=== PATIENT | female | born 2005 | race Caucasian/White ===

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

== ENCOUNTER 2024-05-12 00:47 | Day surgery (SDC) | payer OTHER, SELFPAY ==
--- NOTE | 2024-04-30 09:54 | SUR.PREOP ---
Report to the Outpatient Waiting Room, entrance under the green pavilion located off [facility], at time _0600_ on date _05/12/2024_. Planned Procedure Time: _0730_.? Time changes happen often and if your time is changed the preop area will call you the afternoon before. - You and your visitor will be asked to self-screen and do not enter if you have any COVID symptoms. Please call surgeon if you need to reschedule. - A mask is optional within the hospital at this time. Patients may have clear liquids (water, carbonated beverages, clear teas, apple juice) until 3 hours (0430) prior to surgery with a maximum of 20 ounces. - No food from midnight until time of surgery and no smoking. This includes no chewing gum, candy or mints. - Infants may have breast milk until 4 hours before surgery, formula 6 hours prior to surgery. - Children will be allowed to drink immediately following surgery.? If applicable, please bring a bottle or sippy cup to assist with drinking. Juice, water, soda, and popsicles are readily available.? For infants on formula, please bring formula the day of surgery.? Pacifiers are allowed. Take only the following medications with a SIP of water on the morning of surgery: _NA_ DO NOT STOP ANY OF YOUR OTHER PRESCRIPTION MEDICATIONS PRIOR TO SURGERY EXCEPT THE FOLLOWING Medications to discontinue per physician _NA_ Date to take last dose_NA_ Please no make-up, nail mongolian, hairspray, perfume, deodorant, or body powder the day of surgery.? No jewelry (including any body piercings) or valuables the day of surgery, leave them at home.? Please take a shower or bath the night before, or the morning of, surgery with an antibacterial soap.? Wear comfortable, loose fitting clothing.? Children are encouraged to wear pajamas. - Jewelry must be removed prior to entering the operating room.? Rings and piercings that are not removed may be cut off. - The hospital will not accept responsibility for valuables.? - Please leave all valuables, including medications, at home the day of surgery. If you are going home after surgery, a licensed driver/refuse collector must drive you home.? - NO public transportation without another adult if you receive anesthesia. - We recommend that an adult stay with you for 24 hours following discharge. - We also recommend that you do not drive, make important decision, drink alcoholic beverages, or take any drugs that were not prescribed by your health care provider for at least 24 hours after your discharge time. For Pediatric surgeries, we recommend two adults accompany the child home. Follow any additional instructions given to you from your surgeon. Telephone instructions given to Maria Elena and asked if any additional questions and then verbalized understanding. Patient advised to call surgeon office or pre surgery nurse liaison [phone] if any additional questions.
[2024-04-30 10:08] VITALS: BMI 20.3
[2024-05-12] VITALS (12 sets, daily range): BP systolic 91–120; BP diastolic 55–93; PULSE 55–93; RESP 14–20; TEMP 36.2–37.1; O2SAT 95–100
[2024-05-12 06:26] LABS: BEDSIDEPREGUCG Negative (Negative)
--- NOTE | 2024-05-12 06:29 | P.PNAN_ITS ---
Anes - Initial Pre Proc Eval Procedure: Operation Date: 05/12/24 07:30 Proposed Procedures p Bilateral Turbinated Repair, Bilateral Nasal Valve Repair - Reji Napier MD s Septoplasty - Reji Napier MD Date/Time: 05/12/24 06:29 Surgeon: Reji Napier MD Pre Op Diagnosis: Deviated Septum, Nasal Valve Collapse Patient Data Age: 18 Gender: F Height: 1.7 m Weight: 59 kg Last Vital Signs Temp 37.1 C 05/12/24 06:24 Pulse 93 05/12/24 06:24 Resp 16 05/12/24 06:24 BP 109/72 05/12/24 06:24 Pulse Ox 98 05/12/24 06:24 O2 Del Method Room Air 05/12/24 06:24 Allergies Allergy/AdvReac Type Severity Reaction Status Date / Time No Known Allergies Allergy Verified 05/12/24 06:23 Home Medications ?Medication ?Instructions ?Recorded ?Confirmed ?Type No Home Medications 04/30/24 04/30/24 History Laboratory Tests 05/12/24 06:24 POC Urine HCG, Qual Negative (Negative) Patient hx anesthesia problems: none Family hx anesthesia problems: none Results Review: All pre-operative results and documents have been reviewed as part of the pre- operative evaluation. [facility] Past Medical History Medical History (Updated 12/19/23 @ 00:01 by Poly Kidd) No active medical problems Surgical History Surgical History (Updated 05/12/24 @ 06:29 by Rafael Weber MD) H/O breast biopsy Social History Social History Smoking status: Never smoker Second hand tobacco smoke exposure: No Alcohol intake: never Substance use: never Substance use type: does not use Lack of Transportation: No Lack of Food: Never True Current Housing: I Have Housing Concerned About Future Housing: No Difficulty Paying Gas/Electric Bills: No Difficulty Paying for Meds: No Currently Unemployed: No Education: Associate Degree Difficulty w/ Childcare or Family Care: No Living arrangements: with family Additional living arrangements comments: parents Spiritual care concerns: No Anes - Eval Final PreProcedure Day of Procedure 05/12/24 06:29 Patient weight: normal Heart: regular rate and rhythm Lungs: clear to auscultation Airway: Mallampati scale class II Neurological: alert and oriented Last oral intake: >/= 8 hours ASA classification: I Emergent: no Anesthetic plan: proceed Anesthesia type and monitoring: general ETT and standard monitoring Results Review: All pre-operative results and documents have been reviewed as part of the pre- operative evaluation. Informed Consent: The patient's anesthetic plan and its attendant risks and benefits were discussed with the patient/family/POA. Questions were solicited and answers provided to the satisfaction of the patient/family/POA.
[2024-05-12] MEDS: LACTATED RINGERS 1,000 ML 30 ML IV CONT ×2 (06:30→08:40)
[2024-05-12] MEDS: OXYMETAZOLINE HCL 0.05% NAS 15 ML BTL (*BKC) 1 SPRAY NASAL (06:44)
[2024-05-12] MEDS: SCOPOLAMINE 1 MG PATCH 1 PATCH TRANSDERM (06:44)
[2024-05-12] MEDS: ACETAMINOPHEN 500 MG TABLET 1000 MG PO (06:44)
--- NOTE | 2024-05-12 07:01 | WPDHPUPDATE1 ---
History and Physical Update Update Date/Time: 05/12/24 07:01 History and Physical has been reviewed, including an updated exam of the patient. There are NO changes in the patient's condition. Risks, benefits, and alternatives have been discussed and questions answered. Patient agrees to proceed with procedure.
[2024-05-12] MEDS: ceFAZolin 2 GM/D5W 50 ML 2 GM/50 ML BAG IVPB (07:23)
[2024-05-12] MEDS: LIDO 1%/EPINEPHRINE 1:100,000 50 ML VIAL INFILTRATE (07:45)
--- NOTE | 2024-05-12 08:36 | P.OP_ITS ---
Procedure Note - Detailed Date of Procedure 05/12/24 Pre-op Diagnosis Deviated Septum, Nasal Valve Collapse Post-op Diagnosis Same Procedure Performed Septoplasty, turbinoplasty, bilateral nasal valve repair via alar maria e grafting Surgeon Reji Napier MD Anesthesia General Indications Nasal valve collapse Findings Right caudal deviated septum, bilateral nasal valve collapse, bilateral alar maria e grafts placed, Mohan splints placed Description of Procedure After obtaining informed consent and proper site verification the patient was brought to the operating room and placed on the operating table in the supine position. They were placed under general endotracheal anesthesia by the anesthesia provider. The patient was then draped in standard fashion for septoplasty and turbinoplasty. A timeout was performed and the correct patient and procedure were verified. The nasal cavity was injected with 1% lidocaine with 1-100,000 epinephrine and packed with afrin-soaked cottonoid pledgets. Attention was then directed to the nasal septum. A hemitransfixion incision was made in the left caudal septum and a mucoperichondrial flap was elevated in the usual fashion. The flap was elevated under endoscopic visualization and the remainder of the case was performed with endoscopic assistance. Using a D-knife, an incision was made through the cartilaginous septum with care to preserve the appropriate caudal and dorsal ?L-strut? of cartilage. The cartilage was then disarticulated from the bony-cartilaginous junction and the deviated cartilage was removed. Further deviated bone and cartilage was removed from the maxillary crest and posterior bony septum with care to avoid injury to the mucoperichondrial flap using a combination of dissection and Alpha-Juan forceps. Once this was completed, the hemitransfixion incision was closed using simple interrupted 4-0 chromic suture. A quilting stitch to reapproximate the mucoperichondrial flaps was then placed using 4-0 plain gut suture on a Vernon needle.? The cartilage was set aside and saved for later grafting. Next attention was directed to the turbinates. Using a 0? telescope and 2mm turbinate blade microdebrider, a stab incision was made in the anterior face of the turbinate and dissection was carried posterior to perform submucosal resection. Next the turbinate was outfractured using a blunt instrument. A similar procedure was then performed on the right-hand side without difficulty. The previously harvested septal cartilage was then carved into two appropriately sized alar maria e grafts.? Marginal incisions were made bilaterally through the vestibular nasal skin.? Using curved iris scissors, a pocket was dissected laterally along the lower lateral crura out to the piriform aperture for placement of the grafts.? The grafts were then placed into the dissected pockets bilaterally.? Once secure, the incisions were closed with 4-0 chromic suture. Mohan splints covered in mupirocin ointment were placed in the nasal cavity and secured to the membranous septum using a 3-0 Prolene suture. An brionna-gastric tube was used to decompress the stomach and care of the patient was handed over to anesthesia. The patient was awakened from general anesthesia extubated in the operating room, and transported to the recovery room in stable condition without complication. Estimated Blood Loss 15 Drains No Packing Yes (mohan splints) Pathology None sent Complications No immediate complications Condition Stable Disposition PACU
[2024-05-12] MEDS: MUPIROCIN 2% OINT 22 GM TUBE 1 APPLIC TOPICAL (08:40)
[2024-05-12] MEDS: fentaNYL CITRATE INJ (*CRX) 100 MCG/2 ML VIAL 25 MCG IV PUSH ×4 (09:14→09:23)
[2024-05-12] MEDS: ONDANSETRON INJ 4 MG/2 ML VIAL IV PUSH (10:15)
--- OUTSIDE RECORDS SUMMARY | 2024-05-17 10:32 | XMS_ITS | Encounter Summary ---
Author Organization [facility] Address [address] [facility] [place] [address] Care Team Providers Care Supervisor Metal Fabricating Name Role Phone Dawood Mcgarry MD Primary Care Provider [phone]- [phone] Reason for Visit * Reason Onset Date Comments Follow-up 11/23/2017 Encounter Details Date Type Department Care Team (Late st Contact Info) Description 11/23/2017 Telephone [facility] [address] [address] Jennifer Wallis Follow-up Social History Tobacco Use Types Packs/Day Years Used Date Smoking Tobacco: Never Smokeless Tobacco: Never Comments:No passive smoke ex posure Sex and Gender Information Value Date Recorded Sex Assigned at Not on file Gender Identity Not on file Sexual Orientation Not on file documented as of this encounter Plan of Treatment Not on file documented as of this encounter Visit Diagnoses Not on filedocumented in this encounter Care Teams Supervisor Metal Fabricating Relationship Specialty Start Date End Date Dawood Mcagrry MD [address] [place] [address] PCP - General Pediatrics 09/04/16 documented as of this encounter
--- OUTSIDE RECORDS SUMMARY | 2024-05-17 10:32 | XMS_ITS | Encounter Summary ---
Author Organization [facility] Address [address] [facility] [place] [address] Care Team Providers Care Associate Chief Nurse Name Role Phone Dawood Mcgarry MD Primary Care Provider [phone]- [phone] Reason for Visit * Reason Onset Date Comments Follow-up 09/06/2016 Encounter Details Date Type Department Care Team (Late st Contact Info) Description 09/06/2016 Telephone [facility] [place] [id number] [place] [address] Jennifer Wallis Follow-up Social History Tobacco Use Types Packs/Day Years Used Date Smoking Tobacco: Never Assessed Sex and Gender Information Value Date Recorded Sex Assigned at Not on file Gender Identity Not on file Sexual Orientation Not on file documented as of this encounter Plan of Treatment Not on file documented as of this encounter Visit Diagnoses Not on filedocumented in this encounter Care Teams Associate Chief Nurse Relationship Specialty Start Date End Date Dawood Mcgarry MD [facility] [place] [address] PCP - General Pediatrics 09/04/16 documented as of this encounter
--- OUTSIDE RECORDS SUMMARY | 2024-05-17 10:32 | XMS_ITS | Encounter Summary ---
Author Organization [facility] Address [address] [facility] [place] [address] Care Team Providers Care Scouring Machine Operator Name Role Phone Dawood Mcgarry MD Primary Care Provider [phone]- [phone] Reason for Visit * Reason Comments Sore Throat Encounter Details Date Type Department Care Team (Late st Contact Info) Description 08/13/2018 3:40 PM CDT Office Visit [facility] [address] [place] [address] Provider, Hailee [address] Pharyngitis, unspecified etiology (Primary Dx) Social History Tobacco Use Types Packs/Day Years Used Date Smoking Tobacco: Never Smokeless Tobacco: Never Comments:No passive smoke ex posure Sex and Gender Information Value Date Recorded Sex Assigned at Not on file Gender Identity Not on file Sexual Orientation Not on file documented as of this encounter Last Filed Vital Signs Vital Sign Reading Time Taken Comments Blood Pressure 108/66 08/13/2018 3:43 PM CDT Pulse 77 08/13/2018 3:43 PM CDT Temperature 36.7 ??C (98 ??F) 08/13/2018 3:43 PM CDT Respiratory Rate 16 08/13/2018 3:43 PM CDT Oxygen Saturation 99% 08/13/2018 3:43 PM CDT Inhaled Oxygen Concentration - - Weight 55.8 kg (123 lb) 08/13/2018 3:43 PM CDT Height 167 cm (5' 5.75 ) 08/13/2018 3:43 PM CDT Body Mass Index 20 08/13/2018 3:43 PM CDT Body Mass Index Percentile 58.44% 08/13/2018 3:4 3 PM CDT Growth Chart: [facility] (Girls, 2- 20 Years) documented in this encounter Patient Instructions * Patient Instructions* Kathrine Rachel APRN-JUNIOR SALES ASSISTANT - 08/13/2018 3:56 PM CDT Recommend Zyrtec for sinus drainage. Drink plenty of fluids and rest when able. May take Tylenol or Ibuprofen as directed per package instructions Warm salt water gargles Humidifier SEEK EMERGENCY CARE IF SEVERE SYMPTOMS PERSIST, SUCH , BUT NOT LIMITED TO: HIGH FEVER, NECK PAIN,SWELLING OF THE NECK, NECK TENDERNESS, DEVELOPMENT OF RASH, DIFFICULTY SWALLOWING, MENTAL STATUS CHANGES, SEVERE HEADACHE, CHANGES IN THE COLOR OF YOUR URINE, DECREASED URINATION, OR INABILITY TO SWALLOW SALIVA (MAY MANIFEST DROOLING IN CHILDREN) Pharyngitis in Children X RAY EQUIPMENT TESTER: Pharyngitis , or sore throat, is inflammation of the tissues and structures in your child's pharynx(throat). Pharyngitis may be caused by a bacterial or viral infection. Signs and symptoms that may occur with pharyngitis include the following: ?? Pain during swallowing, or hoarseness ?? Cough, runny or stuffy nose, itchy or watery eyes ?? A rash on his or her body ?? Fever and headache ?? Whitish-yellow patches on the back of the throat ?? Tender, swollen lumps on the sides of the neck ?? Nausea, vomiting, diarrhea, or stomach pain Seek care immediately if: ?? Your child suddenly has trouble breathing or turns blue. ?? Your child has swelling or pain in his or her jaw. ?? Your child has voice changes, or it is hard to understand his or her speech. ?? Your child has a stiff neck. ?? Your child is urinating less than usual or has fewer diapers than usual. ?? Your child has increased weakness or fatigue. ?? Your child has pain on one side of the throat that is much worse than the other side. Contact your child's healthcare provider if: ?? Your child's symptoms return or his symptoms do not get better or get worse. ?? Your child has a rash. He or she may also have reddish cheeks and a red, swollen tongue. ?? Your child has new ear pain, headaches, or pain around his or her eyes. ?? Your child pauses in breathing when he or she sleeps. ?? You have questions or concerns about your child's condition or care. Viral pharyngitis will go away on its own without treatment. Your child's sore throat should start to feel better in 3 to 5 days for both viral and bacterial infections. Your child may need any of the following: ?? Acetaminophen decreases pain. It is available without a doctor's order. Ask how much to give your child and how often to give it. Follow directions. Acetaminophen can cause liver damage if not taken correctly. ?? NSAIDs , such as ibuprofen, help decrease swelling, pain, and fever. This medicine is available with or without a doctor's order. NSAIDs can cause stomach bleeding or kidney problems in certain people. If your child takes blood thinner medicine, always ask if NSAIDs are safe for him. Always readthe medicine label and follow directions. Do not give these medicines to children under 6 months of age without direction from your child's healthcare provider. ?? Antibiotics treat a bacterial infection. ?? Do not give aspirin to children under 18 years of age. Your child could develop Humberto syndrome ifhe takes aspirin. Humberto syndrome can cause life- threatening brain and liver damage. Check your child's medicine labels for aspirin, salicylates, or oil of wintergreen. Manage your child's symptoms: ?? Have your child rest as much as possible. ?? Give your child plenty of liquids so he or she does not get dehydrated. Give your child liquids that are easy to swallow and will soothe his or her throat. ?? Soothe your child's throat. If your child can gargle, give him or her ?? of a teaspoon of salt mixed with 1 cup of warm water to gargle. If your child is 12 years or older, give him or her throat lozenges to help decrease throat pain. ?? Use a cool mist humidifier to increase air moisture in your home. This may make it easier for your child to breathe and help decrease his or her cough. Prevent the spread of germs: Wash your hands and your child's hands often. Keep your child away from other people while he or she is still contagious. Ask your child's healthcare provider how long your child is contagious. Do not let your child share food or drinks. Do not let your child share toysor pacifiers. Wash these items with soap and hot water. When to return to school or daycare: Your child may return to daycare or school when his or her symptoms go away. Follow up with your child's healthcare provider as directed: Write down your questions so you remember to ask them during your child's visits. ?? Copyright [employer] 2017 Information is for End User's use only and may not be sold, redistributed or otherwise used for commercial purposes. All illustrations and images included in CareNotes?? are the copyrighted property of [employer] or [employer] The above information is an educational consultant only. It is not intended as medical advice for individual conditions or treatments. Talk to your doctor, nurse or pharmacist before following any medical regimen to see if it is safe and effective for you. documented in this encounter Progress Notes * Kathrine Rachel APRN-CNP - 08/13/2018 3:49 PM CDT Images from the original note were not included. History Maria Elena Marquez is a 13 year old female who presents to the clinic with Chief Complaint Patient presents with ??? Sore Throat . Primary Care Physician is Dawood Mcgarry MD. She reports the following symptoms: sore throat, swollen glands, productive cough with wheezing andoccasional shortness of breath, pain while swallowing and enlarged tonsils. Onset was 2 days ago. The Clinical course has been gradually worsening. Patient is drinking plenty of fluids.. The pain is described as aching, and is 5/10 in intensity. OTC- none.. Sick Contacts: No known sick contacts. Past Medical History: Diagnosis Date ??? Anxiety ??? Asthma No family history on file. Current Outpatient Prescriptions Medication Sig Dispense Refill ??? ALBUTEROL IN ??? escitalopram (LEXAPRO) 10 MG tablet Take 10 mg by mouth once daily No current facility-administered medications for this visit. No Known Allergies Social History Social History ??? Marital status: Single Social History Main Topics ??? Smoking status: Never Smoker ??? Smokeless tobacco: Never Used Comment: No passive smoke exposure Review of Systems Constitutional: Negative for fatigue, fevers, chills, malaise. Eyes: Negative Ears, nose, mouth, and throat: Positive for nasal congestion, post nasal drainage, sore throat, pain with swallowing, tonsillitis Respiratory: Positive for shortness of breath, acute cough, sputum production, asthma, wheezing Cardiovascular: Negative Hematologic/lymphatic: Negative Objective: BP 108/66 Pulse 77 Temp 98 ??F (36.7 ??C) Resp 16 Ht 1.67 m (5' 5.75 ) Wt 55.8 kg (123 lb) SpO2 99%BMI 20 kg/m2 General appearance: alert, cooperative, no distress, oriented to person, place, and time Head: normocephalic, without trauma Eyes: sclera and conjunctiva clear Ears: canals clear, tympanic membranes normal, hearing intact to voice Nose: nares open; no septal deviation is noted, nasal mucosa not inflamed Throat: no mucous membrane abnormalities, mild oropharyngeal erythema, tonsillar hypertrophy 1+ Neck: supple Nodes: mild, benign-appearing anterior cervical adenopathy Lungs: breath sounds normal and symmetric; no rales or wheezes Heart: regular rhythm, normal S1 and S2, without murmurs, gallops or rubs Assessment: Encounter Diagnosis Name Primary? Pharyngitis, unspecified etiology Yes Plan: Father declined throat culture. Recommend Zyrtec for sinus drainage. Use as directed. Educational materials given. Drink plenty of fluids May take Tylenol or Ibuprofen as directed per package instructions Warm salt water gargles Humidifier Reviewed education materials and instructions with patient and answered all questions. Maria Elena Marquez's father verbalized understanding and agrees with plan. Follow up with Dawood Mcgarry MD if symptoms worsen or do not completely resolve. SEEK EMERGENCY CARE IF SEVERE SYMPTOMS PERSIST, SUCH , BUT NOT LIMITED TO: HIGH FEVER, NECK PAIN,SWELLING OF THE NECK, NECK TENDERNESS, DEVELOPMENT OF RASH, DIFFICULTY SWALLOWING, MENTAL STATUS CHANGES, SEVERE HEADACHE, CHANGES IN THE COLOR OF YOUR URINE, DECREASED URINATION, OR INABILITY TO SWALLOW SALIVA (MAY MANIFEST DROOLING IN CHILDREN) Orders Placed This Encounter ??? STREP A SCREEN - POINT OF CARE (AMB) STL Recent Results (from the past 24 hour(s)) STREP A SCREEN - POINT OF CARE (AMB) STL Collection Time: 08/13/18 12:00 AM Result Value Ref Range Strep A Rapid POCT Negative Negative Strep A Internal Control Present Lot # [id number] Expiration Date 02/25/2020 RAÚL Medrano 08/13/2018 4:02 PM documented in this encounter Plan of Treatment Not on file documented as of this encounter Procedures Procedure Name Priority Date/Time Associated Diagnosis Comments STREP A SCREEN - POINT OF CARE (AMB) STL Routine 08/13/2018 Pharyngitis, unspecified etiology documented in this encounter Results * STREP A SCREEN - POINT OF CARE (AMB) STL (08/13/2018) Strep A Rapid POCT Negative Negative Strep A Internal Control Present Lot # [id number] Expiration Date 02/25/2020 Throat ENTIRE THROAT (SURFACE REGION OF NECK) / Unknown 08/13/2018 [facility] - POINT OF CARE ORDERABLES documented in this encounter Visit Diagnoses Diagnosis Pharyngitis, unspecified etiology- Primary documented in this encounter Care Teams Scouring Machine Operator Relationship Specialty Start Date End Date Dawood Mcgarry MD [address] [place] [address] PCP - General Pediatrics 09/04/16 documented as of this encounter
--- OUTSIDE RECORDS SUMMARY | 2024-05-17 10:32 | XMS_ITS | Patient Health Summary ---
Author Organization [facility] Address [address] [place] [address] Care Team Providers Care Mixer Operator Name Role Phone Dawood Mcgarry MD Primary Care Provider [phone]- [phone] Note from [facility],non-owned Affiliates and Associated Physician Practices is amultiple site organization consisting of ambulatory clinics and hospital sitesin [place], [place], [place] and [place]. This disclosure is being madepursuant to the Care Everywhere program and may not contain all information available regarding this patient. Last updated 18.[facility] Allergies No known active allergies Medications * Be aware that medications may not be up to date on this document. Alwaysverify current medications with the patient. * ALBUTEROL IN * escitalopram (LEXAPRO) 10 MG tablet Take 10 mg by mouth once daily * dtdhsomx-gegtfksqn-iz (CORTISPORIN) 3.5-37270-0 otic solution(Started 12/13/2018) Instill 4 drops into both ears 3 times daily Active Problems No known active problems Social History Tobacco Use Types Packs/Day Years Used Date Smoking Tobacco: Never Smokeless Tobacco: Never Comments:No passive smoke ex posure Sex and Gender Information Value Date Recorded Sex Assigned at Not on file Gender Identity Not on file Sexual Orientation Not on file Last Filed Vital Signs Vital Sign Reading Time Taken Comments Blood Pressure 98/60 12/13/2018 6:29 PM CDT Pulse 68 12/13/2018 6:29 PM CDT Temperature 36.9 ??C (98.4 ??F) 12/13/2018 6:29 PM CD T Respiratory Rate 16 12/13/2018 6:29 PM CDT Oxygen Saturation 98% 11/25/2018 4:49 PM CDT Inhaled Oxygen Concentration - - Weight 56.7 kg (125 lb) 12/13/2018 6:29 PM CDT Height 167.6 cm (5' 6 ) 12/13/2018 6:29 PM CDT Body Mass Index 20.18 12/13/2018 6:29 PM CDT Body Mass Index Percentile 58.14% 12/13/2018 6:2 9 PM CDT Growth Chart: [facility] (Girls, 2- 20 Years) Procedures * STREP A SCREEN - POINT OF CARE (AMB) STL(Performed 08/13/2018) Performed for Pharyngitis, unspecified etiology * INFLUENZA A+B - POINT OF CARE (AMB)(Performed 06/05/2018) Performed for Acute URI * INFLUENZA A+B - POINT OF CARE (AMB)(Performed 07/16/2017) Performed for Nasopharyngitis acute * CULTURE THROAT(Performed 09/04/2016) Performed for Viral pharyngitis * STREP A SCREEN - POINT OF CARE (AMB) STL(Performed 09/04/2016) Performed for Viral pharyngitis Results * STREP A SCREEN - POINT OF CARE (AMB) STL (08/13/2018) Only the most recent of2 resultswithin the time period is included. Strep A Rapid POCT Negative Negative Strep A Internal Control Present Lot # [id number] Expiration Date 02/25/2020 Throat ENTIRE THROAT (SURFACE REGION OF NECK) / Unknown 08/13/2018 Kathrine Rachel [facility]OR [facility] - POINT OF CARE ORDERABLES * INFLUENZA A+B - POINT OF CARE (AMB) (06/05/2018) Only the most recent of2 resultswithin the time period is included. Influenza A Antigen Rapid Negative Negative Influenza B Antigen Rapid Negative Negative Influenza Internal Control yes NEGATIVE - POSITIVE Influenza Lot Number [id number] Influenza Expiration Date 09/25/18 Other NASOPHARYNGEAL SWAB / Unknown 06/05/2018 Annabelle Abraham ACTOR UNDERSTUDY[facility] - POINT OF CA RE ORDERABLES * (ABNORMAL) CULTURE THROAT (09/04/2016 10:39 AM CDT) Culture (A) [facility] Comment: ??CULTURE, THROAT ?MICRO NUMBER: ?[id number] ??TEST STATUS: ? FINAL ??SPECIMEN SOURCE: ?? THROAT ??SPECIMEN QUALITY: ??ADEQUATE ??RESULT: ?Heavy growth of Group A Streptococcus isolated ? Beta-hemolytic Streptococci are predictably ? susceptible to penicillin and other beta-lactams. ? Susceptibility testing not routinely performed. ??COMMENT: ? Normal oropharyngeal prakash also present. Test Performed at: [facility] ??[id number] JORJE LOPEZ MD Microbiology ENTIRE THROAT (SURFACE REGION OF NECK) / Unknown 09/04/2016 10:39 AM CDT 09/05/2016 2:38 AM CDT Swetha Proctor ACTOR [facility] - MICROBIOLO GY ORDERABLES [address] [address] Care Teams Mixer Operator Relationship Specialty Start Date End Date Dawood Mcgarry MD [facility] [place] [address] PCP - General Pediatrics 09/04/16
--- OUTSIDE RECORDS SUMMARY | 2024-05-17 10:32 | XMS_ITS | Encounter Summary ---
Author Organization [facility] Address [address] [facility] [place] [address] Care Team Providers Care International Accounting Manager Name Role Phone Dawood Mcgarry MD Primary Care Provider [phone]- [phone] Reason for Visit * Reason Onset Date Comments Results 09/07/2016 Encounter Details Date Type Department Care Team (Late st Contact Info) Description 09/07/2016 Telephone [facility] [email or web address] [facility] [address] [place] [address] Kathrine Rachel, [facility] [address] [address] Results Social History Tobacco Use Types Packs/Day Years Used Date Smoking Tobacco: Never Assessed Sex and Gender Information Value Date Recorded Sex Assigned at Not on file Gender Identity Not on file Sexual Orientation Not on file documented as of this encounter Plan of Treatment Not on file documented as of this encounter Visit Diagnoses Not on filedocumented in this encounter Care Teams International Accounting Manager Relationship Specialty Start Date End Date Dawood Mcgarry MD [address] [place] [phone] PCP - General Pediatrics 09/04/16 documented as of this encounter
--- OUTSIDE RECORDS SUMMARY | 2024-05-17 10:32 | XMS_ITS | Encounter Summary ---
Author Organization [facility] Address [address] [place] [address] Care Team Providers Care Autographer Name Role Phone Dawood Mcgarry MD Primary Care Provider [phone] Reason for Visit * Reason Comments Sports Physical Encounter Details Date Type Department Care Team (Latest Contact Info) Description 12/31/2017 4:00 PM CDT Office Visit [facility] [place] [id number] [place] [address] Provider, [facility] Encounter for sports participation examination (Primary Dx) Social History Tobacco Use Types Packs/Day Years Used Date Smoking Tobacco: Never Smokeless Tobacco: Never Comments:No passive smoke ex posure Sex and Gender Information Value Date Recorded Sex Assigned at Not on file Gender Identity Not on file Sexual Orientation Not on file documented as of this encounter Last Filed Vital Signs Vital Sign Reading Time Taken Comments Blood Pressure 122/64 12/31/2017 4:15 PM CDT Pulse 84 12/31/2017 4:15 PM CDT Temperature 36.9 ??C (98.4 ??F) 12/31/2017 4:15 PM CD T Respiratory Rate 16 12/31/2017 4:15 PM CDT Oxygen Saturation 99% 12/31/2017 4:15 PM CDT Inhaled Oxygen Concentration - - Weight 55.8 kg (123 lb) 12/31/2017 4:15 PM CDT Height 167 cm (5' 5.75 ) 12/31/2017 4:15 PM CDT Body Mass Index 20.01 12/31/2017 4:15 PM CDT Body Mass Index Percentile 63.15% 12/31/2017 4:1 5 PM CDT Growth Chart: [facility] (Girls, 2- 20 Years) documented in this encounter Progress Notes * Kathrine Rachel, EXPLOSIVE ORDNANCE DISPOSAL MANAGER-ACCOUNTING ASSOCIATE - 12/31/2017 4:19 PM CDT Images from the original note were not included. Maria Elena Marquez 2005 12/31/2017 PCP: Dawood Mcgarry MD [facility] Preparticipation Sports/Camp Examination Maria Elena Marquez is a 12 y.o. female who [facility] a sports/camp physical. Patient/parent deny any current health related concerns. She plans to participate in swimming, soccer, basketball, volleyball. Has participated in all of the above sports previously without any jose related concerns. Patient denies any history of concussion, head injury, or seizures. Patient denies any history of chest pain, chest pain with exertion, feeling lightheaded or experiencing dizziness with exercise. Denies difficulty breathing during or after exercise. Denies history of hernia. Denies any family history of sudden cardiac or unexplained for those under age 50. Denies any family history of cardiomyopathy. Denies any family history of Marfan Syndrome. Medications reviewed. No outpatient prescriptions have been marked as taking for the 12/31/17 encounter (Office Visit) withHailee De Jesus Exp [facility]. No Known Allergies Vaccines: Reported as UTD Last Tetanus: up to date. Past Medical History: Diagnosis Date ??? Anxiety ??? Asthma Past Surgical History: Procedure Laterality Date ??? NEGATIVE SURGICAL HISTORY family history is not on file. Social History Social History ??? Marital status: Single Spouse name: N/A ??? Number of children: N/A ??? Years of education: N/A Occupational History ??? Not on file. Social History Main Topics ??? Smoking status: Never Smoker ??? Smokeless tobacco: Never Used Comment: No passive smoke exposure ??? Alcohol use Not on file ??? Drug use: Not on file ??? Sexual activity: Not on file Other Topics Concern ??? Not on file Social History Narrative History Smoking Status ??? Never Smoker Smokeless Tobacco ??? Never Used Comment: No passive smoke exposure Denies use of steroids, other performance, or recreational drugs. Review of Systems Constitutional: Negative for fatigue, fevers, chills. Eyes: Negative for double vision, eye pain bilaterally, redness bilaterally, irritation bilaterally, color blindness, or contacts. Wears glasses. Ears, nose, mouth, and throat: Negative for hearing loss bilaterally, tinnitus bilaterally, earaches bilaterally, persistent sore throat, dental problems Respiratory: Negative for shortness of breath, chronic cough, wheezing. Patient has asthma, uses inhaler rarely. Cardiovascular: Negative for palpitations, tachycardia, irregular heart beat, near-syncope, syncope, chest pain, exertional chest pain or pressure, lower extremity edema Gastrointestinal: Negative for nausea, vomiting, gallbladder trouble, change in bowel habits, constipation, diarrhea Genitourinary:Negative for frequency, urinary tract infection, kidney stone, dysmenorrhea Skin: Negative for rash, itching, bruising, lumps or bumps Breast: Negative for lump bilaterally, mass bilaterally, pain bilaterally Hematologic/lymphatic: Negative for anemia, bleeding disorder, swollen nodes, abnormal bruising, blood clots Musculoskeletal:Negative for joint pain, back pain, neck pain, muscle weakness, muscle pain Neurological: Negative for headaches, migraine headaches, syncope, seizures, speech impairment, balance problem, memory problem Behavioral/Psych: Negative for depressed mood, fatigue, hallucinations, delusions, memory loss, suicidal ideation. Positive for patient has anxiety, no medication for it. She went to counseling. Endocrine: Negative for thyroid nodule, cold intolernance, heat intolerance Objective Vitals: BP 122/64 Pulse 84 Temp 98.4 ??F (36.9 ??C) Resp 16 Ht 1.67 m (5' 5.75 ) Wt 55.8 kg (123 lb) SpO2 99% BMI 20.01 kg/m2 Vision Screen: Visual Acuity Screening Right eye Left eye Both eyes Without correction: 20/20 20/40 20/20 With correction: General appearance: alert, cooperative, no distress, oriented to person, place, and time, well appearing Head: normocephalic, without trauma Eyes: sclera and conjunctiva clear, EOMI and PERRLA, lids normal. Ears: bilateral ear canals clear, tympanic membranes normal, hearing intact to voice Nose: nares open; no septal deviation is noted, nasal mucosa not inflamed Mouth: lips, mucosa, and tongue normal; teeth and gums normal Throat: Uvula midline, no erythema, exudates, masses, or lesions. Tonsils unremarkable Neck: supple, range of motion is intact, no masses, thyroid not enlarged, no adenopathy Nodes: no cervical, axilla, or supraclavicular adenopathy Back: no deformity or tenderness, range of motion is intact. No CVA tenderness. Chest: no tenderness Breasts: exam not performed Lungs: breath sounds normal and symmetric; no rales or wheezes. Good aeration Heart: regular rate and rhythm, normal S1 and S2, without murmurs, gallops or rubs. No murmurs auscultated while standing, supine, or valsalva. No Marfan stigmata Abdomen: soft without mass, non-tender, with normal bowel sounds. No organomegaly. : exam not performed (negative screening) Extremities: no clubbing, cyanosis or edema Circulation: pedal pulses are intact and symmetrical, aorta is not enlarged; Radial pulses intact and symmetric. Capillary refill is brisk. Joints: ranges of motion normal without inflammation, effusion or deformity Skin: warm, dry, and intact. No rashes or other abnormalities are noted Musculoskeletal: bilateral hand asphalt blender 5/5 and equal; bilateral arm and leg strength 5/5 with normaltone; no spinal deformities or tenderness; normal duck walk, normal left and right leg hop. Normal gait and station. Neurologic: mental status normal; alert and oriented X 3; cranial nerves II - XII are grossly intact. Deep tendon reflexes are symmetrical and intact. Psychiatric: mood, memory, affect, and judgment normal. Assessment: Satisfactory school/camp physical exam. Plan/Recommendation: Unrestricted participation granted Permission granted to participate in athletics without restrictions - form signed and returned to patient. See scanned document. Reviewed health maintenance, seat belt use, contraception, STD???s, and substance abuse. Keep yearly appointments for dental, eye, and physical exams Follow up with Dawood Mcgarry MD as needed. Kathrine Rachel APRN, SUPERVISING PRODUCER-BC 12/31/2017 4:42 PM documented in this encounter Plan of Treatment Not on file documented as of this encounter Visit Diagnoses Diagnosis Encounter for sports participation examination- Primary Other general medical examination for administrative purposes documented in this encounter Care Teams Autographer Relationship Specialty Start Date End Date Dawood Mcgarry MD [address] [place] [id number] PCP - General Pediatrics 09/04/16 documented as of this encounter
--- OUTSIDE RECORDS SUMMARY | 2024-05-17 10:32 | XMS_ITS | Encounter Summary ---
Author Organization [facility] Address [address] [place] [address] Care Team Providers Care Director Ehs Name Role Phone Dawood Mcgrary MD Primary Care Provider [phone]- [phone] Reason for Visit * Reason Comments Congestion Headache Fever Encounter Details Date Type Department Care Team (Late st Contact Info) Description 06/05/2018 9:00 AM FACILITY MANAGER Office Visit [facility] [place] [id number] [place] [address] Provider, Hailee Exp Nameoki Acute URI (Primary Dx) Social History Tobacco Use Types Packs/Day Years Used Date Smoking Tobacco: Never Smokeless Tobacco: Never Comments:No passive smoke ex posure Sex and Gender Information Value Date Recorded Sex Assigned at Not on file Gender Identity Not on file Sexual Orientation Not on file documented as of this encounter Last Filed Vital Signs Vital Sign Reading Time Taken Comments Blood Pressure 116/68 06/05/2018 9:09 AM FACILITY MANAGER Pulse 82 06/05/2018 9:09 AM FACILITY MANAGER Temperature 36.5 ??C (97.7 ??F) 06/05/2018 9:09 AM CS T Respiratory Rate 16 06/05/2018 9:09 AM FACILITY MANAGER Oxygen Saturation 98% 06/05/2018 9:09 AM FACILITY MANAGER Inhaled Oxygen Concentration - - Weight 55.8 kg (123 lb) 06/05/2018 9:09 AM FACILITY MANAGER Height 167 cm (5' 5.75 ) 06/05/2018 9:09 AM FACILITY MANAGER Body Mass Index 20 06/05/2018 9:09 AM FACILITY MANAGER Body Mass Index Percentile 59.85% 06/05/2018 9:0 9 AM FACILITY MANAGER Growth Chart: CDC (Girls, 2- 20 Years) documented in this encounter Patient Instructions * Patient Instructions* Annabelle Abraham Gustavo, EMERGENCY MEDCL EMT-SECOND FACING BASTER - 06/05/2018 9:37 AM FACILITY MANAGER Images from the original note were not included. You have been diagnosed with a VIRAL INFECTION. -Viral infections do not improve with antibiotics. -Viral symptoms can linger from 7-14 days -The color of drainage or phlegm does not always reflect the need for an antibiotic, even during a viral illness it is normal for drainage to change from yellow to green at times. -Please refer to the CDC Get Smart (cdc.gov/getsmart) campaign for more details. There are many OTC medications and supportive care measures you can try to treat your symptoms until your symptoms resolve. Use all OTC medications as directed per package instructions -Tylenol or Ibuprofen for fever and pain. -Antihistamines (Claritin, Zyrtec, or Marcy) as needed for drainage. -Delsym or Mucinex as needed for coughing. -Cough drops and throat lozenges -Increase decaffeinated fluids -Sleep with head of bed raised (to promote drainage) -Avoid spreading the virus by remaining at home and away from others until you are fever-free (temperature below 100.3) for 24 hours, without the aid of fever reducers. -Good handwashing and coveringyour mouth when coughing are also important. If you are not improving or worsening in the next 5-7 days you must RETURN to the clinic, go to your PCP, or Urgent Care/ER to be SEEN and reevaluated. No further prescriptions or refills will be given by phone without another evaluation. IF YOU DEVELOP A HIGH FEVER (103+), NECK STIFFNESS, DIFFICULTY BREATHING, CHEST PAIN, RASH, OR ANY OTHER LIFE THREATENING SYMPTOMS, CALL 911 OR GO TO THE ER IMMEDIATELY Upper Respiratory Infection in Children BOAT DECKHAND: An upper respiratory infection is also called a common cold. It can affect your child's nose, throat, ears, and sinuses. Most children get about 5 to 8 colds each year. Common signs and symptoms include the following: Your child's cold symptoms will be worst for the first 3 to 5 days. Your child may have any of the following: ?? Runny or stuffy nose ?? Sneezing and coughing ?? Sore throat or hoarseness ?? Red, watery, and sore eyes ?? Tiredness or fussiness ?? Chills and a fever that usually lasts 1 to 3 days ?? Headache, body aches, or sore muscles Seek care immediately if: ?? Your child's temperature reaches 105??F (40.6??C). ?? Your child has trouble breathing or is breathing faster than usual. ?? Your child's lips or nails turn blue. ?? Your child's nostrils flare when he or she takes a breath. ?? The skin above or below your child's ribs is sucked in with each breath. ?? Your child's heart is beating much faster than usual. ?? You see pinpoint or larger reddish-purple dots on your child's skin. ?? Your child stops urinating or urinates less than usual. ?? Your baby's soft spot on his or her head is bulging outward or sunken inward. ?? Your child has a severe headache or stiff neck. ?? Your child has chest or stomach pain. ?? Your baby is too weak to eat. Contact your child's healthcare provider if: ?? Your child has a rectal, ear, or forehead temperature higher than 100.4??F (38??C). ?? Your child has an oral or pacifier temperature higher than 100??F (37.8??C). ?? Your child has an armpit temperature higher than 99??F (37.2??C). ?? Your child is younger than 2 years and has a fever for more than 24 hours. ?? Your child is 2 years or older and has a fever for more than 72 hours. ?? Your child has had thick nasal drainage for more than 2 days. ?? Your child has ear pain. ?? Your child has white spots on his or her tonsils. ?? Your child coughs up a lot of thick, yellow, or green mucus. ?? Your child is unable to eat, has nausea, or is vomiting. ?? Your child has increased tiredness and weakness. ?? Your child's symptoms do not improve or get worse within 3 days. ?? You have questions or concerns about your child's condition or care. Treatment for your child's cold: There is no cure for the common cold. Colds are caused by viruses and do not get better with antibiotics. Most colds in children go away without treatment in 1 to 2 weeks. Do not give estk-ffv-gfblnot (OTC) cough or cold medicines to children younger than 4 years. Your child's healthcare provider may tell you not to give these medicines to children younger than 6 years. OTC cough and cold medicines can cause side effects that may harm your child. Your child may need any of the following to help manage his or her symptoms: ?? Decongestants help reduce nasal congestion in older children and help make breathing easier. If your child takes decongestant pills, they may make him or her feel restless or cause problems with sleep. Do not give your child decongestant sprays for more than a few days. ?? Cough suppressants help reduce coughing in older children. Ask your child's healthcare provider which type of cough medicine is best for him or her. ?? Acetaminophen decreases pain and fever. It is available without a doctor's order. Ask how much to give your child and how often to give it. Follow directions. Read the labels of all other medicines your child uses to see if they also contain acetaminophen, or ask your child's doctor or pharmacist. Acetaminophen can cause liver damage if not [...] direction from your child's healthcare provider. ?? Do not give aspirin to children under 18 years of age. Your child could develop Humberto syndrome ifhe takes aspirin. Humberto syndrome can cause life- threatening brain and liver damage. Check your child's medicine labels for aspirin, salicylates, or oil of wintergreen. ?? Give your child's medicine as directed. Contact your child's healthcare provider if you think the medicine is not working as expected. Tell him or her if your child is allergic to any medicine. Keep a current list of the medicines, vitamins, and herbs your child takes. Include the amounts, and when, how, and why they are taken. Bring the list or the medicines in their containers to follow-up visits. Carry your child's medicine list with you in case of an emergency. Care for your child: ?? Have your child rest. Rest will help his or her body get better. ?? Give your child more liquids as directed. Liquids will help thin and loosen mucus so your child can cough it up. Liquids will also help prevent dehydration. Liquids that help prevent dehydration include water, fruit juice, and broth. Do not give your child liquids that contain caffeine. Caffeinecan increase your child's risk for dehydration. Ask your child's healthcare provider how much liquid to give your child each day. ?? Clear mucus from your child's nose. Use a bulb syringe to remove mucus from a baby's nose. Squeeze the bulb and put the tip into one of your baby's nostrils. Gently close the other nostril with your finger. Slowly release the bulb to suck up the mucus. Empty the bulb syringe onto a tissue. Repeat the steps if needed. Do the same thing in the other nostril. Make sure your baby's nose is clear be fore he or she feeds or sleeps. Your child's healthcare provider may recommend you put saline dropsinto your baby's nose if the mucus is very thick. ?? Soothe your child's throat. If your child is 8 years or older, have him or her gargle with salt water. Make salt water by dissolving ?? teaspoon salt in 1 cup warm water. ?? Soothe your child's cough. You can give honey to children older than 1 year. Give ?? teaspoon ofhoney to children 1 to 5 years. Give 1 teaspoon of honey to children 6 to 11 years. Give 2 teaspoons of honey to children 12 or older. ?? Use a cool-mist humidifier. This will add moisture to the air and help your child breathe easier. Make sure the humidifier is out of your child's reach. ?? Apply petroleum-based jelly around the outside of your child's nostrils. This can decrease irritation from blowing his or her nose. ?? Keep your child away from smoke. Do not smoke near your child. Do not let your older child smoke. Nicotine and other chemicals in cigarettes and cigars can make your child's symptoms worse. They can also cause infections such as bronchitis or pneumonia. Ask your child's healthcare provider for information if you or your child currently smoke and need help to quit. E-cigarettes or smokeless tobacco still contain nicotine. Talk to your healthcare provider before you or your child use these products. Prevent the spread of a cold: ?? Keep your child away from other people during the first 3 to 5 days of his or her cold. The virus is spread most easily during this time. ?? Wash your hands and your child's hands often. Teach your child to cover his or her nose and mouth when he or she sneezes, coughs, and blows his or her nose. Show your child how to cough and sneezeinto the crook of the elbow instead of the hands. ?? Do not let your child share toys, pacifiers, or towels with others while he or she is sick. ?? Do not let your child share foods, eating utensils, cups, or drinks with others while he or she is sick. Follow up with your child's healthcare provider as directed: Write down your questions so you remember to ask them during your child's visits. ?? Copyright [employer] 2018 Information is for End User's use only and may not be sold, redistributed or otherwise used for commercial purposes. All illustrations and images included in CareNotes?? are the copyrighted property of [employer]. or [employer] The above information is an transportation aide only. It is not intended as medical advice for individual conditions or treatments. Talk to your doctor, nurse or pharmacist before following any medical regimen to see if it is safe and effective for you. LITY MANAGER documented in this encounter Progress Notes * Annabelle Abraham APRN-CNP - 06/05/2018 9:18 AM CST Subjective: Maria Elena Marquez is a 12 y.o. female who presents to the clinic for Chief Complaint Patient presents with ??? Congestion ??? Headache ??? Fever . Her Primary Care Physician is Dawood Mcgarry MD. She reports congestion, post nasal drip, sneezing, non productive cough, low grade fever. Onset of symptoms was 2 days ago, and is gradually worsening since that time. She is drinking plenty of fluids.. She have tried antihistamines.OTC- Tylenol for pain with relief. Sick Contacts: at school. Past Medical History: Diagnosis Date ??? Anxiety [...] passive smoke exposure Review of Systems Constitutional: Positive for fatigue and low grade fevers, Negative for malaise. Eyes: Negative Ears, nose, mouth, and throat: Positive for congestion Respiratory: Positive for acute cough, asthma, Negative for shortness of breath, wheezing Cardiovascular: Negative for chest pain Neurological: Positive for headaches Objective: BP 116/68 Pulse 82 Temp 97.7 ??F (36.5 ??C) Resp 16 Ht 1.67 m (5' 5.75 ) Wt 55.8 kg (123 lb) SpO2 98% BMI 20 kg/m2 Exam General appearance: alert, cooperative, no distress, oriented to person, place, and time Head: normocephalic, without trauma Eyes: sclera and conjunctiva clear Ears: canals clear, tympanic membranes normal, hearing intact to voice Nose: mucosa erythematous and swollen, clear rhinorrhea Throat: no mucous membrane abnormalities Neck: supple Nodes: no cervical adenopathy Lungs: breath sounds normal and symmetric; no rales or wheezes Heart: regular rhythm, normal S1 and S2, without murmurs, gallops or rubs Neurologic: mental status normal Assessment: Encounter Diagnosis Name Primary? Acute URI Yes Plan: You have been diagnosed with a VIRAL INFECTION. -Viral infections do not improve with antibiotics. -Viral symptoms can linger from 7-14 days -The color of drainage or phlegm does not always reflect the need for an antibiotic, even during a viral illness it is normal for drainage to change from yellow to green at times. -Please refer to the CDC Get Smart (cdc.gov/getsmart) campaign for more details. There are many OTC medications and supportive care measures you can try to treat your symptoms until your symptoms resolve. Use all OTC medications as directed per package instructions -Tylenol or Ibuprofen for fever and pain. -Antihistamines (Claritin, Zyrtec, or Marcy) as needed for drainage. -Delsym or Mucinex as needed for coughing. -Cough drops and throat lozenges -Increase decaffeinated fluids -Sleep with head of bed raised (to promote drainage) -Avoid spreading the virus by remaining at home and away from others until you are fever-free (temperature below 100.3) for 24 hours, without the aid of fever reducers. -Good handwashing and covering your mouth when coughing are also important. If you are not improving or worsening in the next 5-7 days you must RETURN to the clinic, go to your PCP, or Urgent Care/ER to be SEEN and reevaluated. No further prescriptions or refills will be given by phone without another evaluation. IF YOU DEVELOP A HIGH FEVER (103+), NECK STIFFNESS, DIFFICULTY BREATHING, CHEST PAIN, RASH, OR ANY OTHER LIFE THREATENING SYMPTOMS, CALL 911 OR GO TO THE ER IMMEDIATELY School note provided to patient Follow up with Dawood Mcgarry MD if symptoms do not start to improve in 48 hours, if symptoms worsen, or do not completely resolve. Reviewed education materials and instructions with patient and answered all questions. Maria Elena Marquez's mother verbalized understanding and agrees with plan. Orders Placed This Encounter ??? INFLUENZA A+B - POINT OF CARE (AMB) Recent Results (from the past 24 hour(s)) INFLUENZA A+B - POINT OF CARE (AMB) Collection Time: 06/05/18 12:00 AM Result Value Ref Range Influenza A Antigen Rapid Negative Negative Influenza B Antigen Rapid Negative Negative Influenza Internal Control yes NEGATIVE - POSITIVE Influenza Lot Number [id number] Influenza Expiration Date 09/25/18 DREA Mac LITY MANAGER documented in this encounter Plan of Treatment Not on file documented as of this encounter Procedures Procedure Name Priority Date/Time Associated Diagnosis Comments INFLUENZA A+B - POINT OF CARE (AMB) Routine 06/05/2018 Acute URI documented in this encounter Results * INFLUENZA A+B - POINT OF CARE (AMB) (06/05/2018) Influenza A Antigen Rapid Negative Negative Influenza B Antigen Rapid Negative Negative Influenza Internal Control yes NEGATIVE - POSITIVE Influenza Lot Number [id number] Influenza Expiration Date 09/25/18 Other NASOPHARYNGEAL SWAB / Unknown 06/05/2018 Annabelle Abraham EMERGENCY MEDCL EMT-SECON[facility]ACING [facility]ER LAB - POINT OF CA RE ORDERABLES documented in this encounter Visit Diagnoses Diagnosis Acute URI- Primary Acute upper respiratory infections of unspecified site documented in this encounter Care Teams Director Ehs Relationship Specialty Start Date End Date Dawood Mcgarry MD [address] [place] [address] PCP - General Pediatrics 09/04/16 documented as of this encounter
--- OUTSIDE RECORDS SUMMARY | 2024-05-17 10:32 | XMS_ITS | Encounter Summary ---
Author Organization [facility] Address [address] [facility] [place] [address] Care Team Providers Care Hydrogen Operator Name Role Phone Dawood Mcgarry MD Primary Care Provider [phone]- [phone] Reason for Visit * Reason Onset Date Comments Results 09/08/2016 Encounter Details Date Type Department Care Team (Late st Contact Info) Description 09/08/2016 Telephone [facility] [address] [place] [address] Swetha Proctor APRN-COMPUTER FORENSIC EXAMINER [address] [place] [address] Results Social History Tobacco Use Types Packs/Day Years Used Date Smoking Tobacco: Never Assessed Sex and Gender Information Value Date Recorded Sex Assigned at Not on file Gender Identity Not on file Sexual Orientation Not on file documented as of this encounter Plan of Treatment Not on file documented as of this encounter Visit Diagnoses Not on filedocumented in this encounter Care Teams Hydrogen Operator Relationship Specialty Start Date End Date Dawood Mcgarry MD [address] [place] [phone] PCP - General Pediatrics 09/04/16 documented as of this encounter
--- OUTSIDE RECORDS SUMMARY | 2024-05-17 10:32 | XMS_ITS | Encounter Summary ---
Author Organization [facility] Address [address] [place] [address] Care Team Providers Care Cushion Assembler Name Role Phone Dawood Mcgarry MD Primary Care Provider [phone]- [phone] Reason for Visit * Reason Onset Date Comments Follow-up 07/19/2017 Encounter Details Date Type Department Care Team (Late st Contact Info) Description 07/19/2017 Telephone [facility] [address] [address] Jennifer Wallis Follow-up Social History [...] on filedocumented in this encounter Care Teams Cushion Assembler Relationship Specialty Start Date End Date Dawood Mcgarry MD [address] [place] [phone] PCP - General Pediatrics 09/04/16 documented as of this encounter
--- OUTSIDE RECORDS SUMMARY | 2024-05-17 10:32 | XMS_ITS | Encounter Summary ---
Author Organization [facility] Address [address] [place] [address] Care Team Providers Care Automotive Technology Instructor Name Role Phone Dawood Mcgarry MD Primary Care Provider [phone] Reason for Visit * Reason Comments Ear Pain Encounter Details Date Type Department Care Team (Late st Contact Info) Description 12/13/2018 6:20 PM CDT Office Visit [facility] [address] [place] [address] Provider, Hailee Exp Nameoki Acute swimmer's ear of both sides (Primary Dx); Acute mucoid otitis media of left ear Social History Tobacco Use Types Packs/Day Years [...] 16 12/13/2018 6:29 PM CDT Oxygen Saturation - - Inhaled Oxygen Concentration - - Weight 56.7 kg (125 lb) 12/13/2018 6:29 PM CDT Height 167.6 cm (5' 6 ) 12/13/2018 6:29 PM CDT Body Mass Index 20.18 12/13/2018 6:29 PM CDT Body Mass Index Percentile 58.14% 12/13/2018 6:2 9 PM CDT Growth Chart: CDC (Girls, 2- 20 Years) documented in this encounter Patient Instructions * Patient Instructions* Jennifer Mendez, ESCROW CLOSER-LABORER GENERAL - 12/13/2018 6:38 PM CDT Images from the original note were not included. Otitis Externa ??? Acetaminophen (Tylenol) or Ibuprofen (Advil, Motrin) for ear pain. You may alternate acetaminophen and ibuprofen every 3-4 hours to manage ear pain. Do not exceed recommended daily maximum dose of either product. ??? Position affected ear upwards for 5 minutes after application of ear drops. ??? Apply heat to the area around the ear to relieve pain using a warm washcloth, towel from the dryer, heating pad, hot water bottle. Do not leave heating pad turned on while sleeping. ??? Keep the infected ear dry. USE ear plugs or shower cap for showering. ??? Avoid swimming until infection has resolved. ??? Do not go under water in hot tubs. ??? To prevent future episodes, use over the counter ear products containing a diluted solution of acetic acid or rubbing alcohol after swimming to keep ear canal dry. Apply as directed and gently message to allow penetration. Otitis Externa CHIEF OF PRODUCTION: Otitis externa , or swimmer's ear, is an infection in the outer ear canal. This canal goes from theoutside of the ear to the eardrum. Common signs and symptoms include the following: ?? Ear pain ?? Outer ear canal is red and swollen ?? Clear fluid or pus is leaking out of your ear ?? Outer ear canal is itchy and you see a rash ?? Trouble hearing because your ear is plugged ?? Feel a bump in your ear canal, called a polyp ?? Flakes of skin fall from your ear Seek care immediately if: ?? You have severe ear pain. ?? You are suddenly unable to hear at all. ?? You have new swelling in your face, behind your ears, or in your neck. ?? You suddenly cannot move part of your face. ?? Your face suddenly feels numb. Contact your healthcare provider if: ?? You have a fever. ?? Your signs and symptoms do not get better after 2 days of treatment. ?? Your signs and symptoms go away for a time, but then come back. ?? You have questions or concerns about your condition or care. Treatment for otitis externa may include any of the following: ?? NSAIDs , such as ibuprofen, help decrease swelling, pain, and fever. This medicine is available with or without a doctor's order. NSAIDs can cause stomach bleeding or kidney problems in certain people. If you take blood thinner medicine, always ask if NSAIDs are safe for you. Always read the medicine label and follow directions. Do not give these medicines to children under 6 months of age without direction from your child's healthcare provider. ?? Acetaminophen decreases pain and fever. It is available without a doctor's order. Ask how much to take and how often to take it. Follow directions. Acetaminophen can cause liver damage if not taken correctly. ?? Ear drops that contain an antibiotic may be given. The antibiotic helps treat a bacterial infection. You may also be given steroid medicine. The steroid helps decrease redness, swelling, and pain. ?? Ear wicking removes fluid or wax from your outer ear canal. Healthcare providers may insert a small tube, called a wick, into your ear to help drain fluid. A wick also may be used to put medicine into your ear canal if the canal is blocked. Follow the steps below to use eardrops: ?? Lie down on your side with your infected ear facing up. ?? Carefully drip the correct number of eardrops into your ear. Have another person help you if possible. ?? Gently move the outside part of your ear back and forth to help the medicine reach your ear canal. ?? Stay lying down in the same position (with your ear facing up) for 3 to 5 minutes. Prevent otitis externa: ?? Do not put cotton swabs or foreign objects in your ears. ?? Wrap a clean moist washcloth around your finger, and use it to clean your outer ear and remove extra ear wax. ?? Use ear plugs when you swim. Dry your outer ears completely after you swim or bathe. Follow up with your healthcare provider as directed: Write down your questions so you remember to ask them during your visits. ?? Copyright [employer] 2019 Information is for End User's use only and may not be sold, redistributed or otherwise used for commercial purposes. All illustrations and images included in CareNotes?? are the copyrighted property of [employer]. or [employer] The above information is an audiovisual aids technician only. It is not intended as medical advice for individual conditions or treatments. Talk to your doctor, nurse or pharmacist before following any medical regimen to see if it is safe and effective for you. documented in this encounter Progress Notes * Jennifer Mendez APRN-CNP - 12/13/2018 6:26 PM CDT Subjective: Maria Elena Marquez is a 13 year old female who presents to the clinic today for Chief Complaint Patient presents with ??? Ear Pain . Primary Care Physician is Dawood Mcgarry MD. Symptoms include ear pain bilateral. Onset of symptoms was 1 day ago, gradually worsening since that time. She Has also reported the following symptoms: subjective fever, chills, and is drinking plenty of fluids. Pt seen at this clinic, treated with claritin OTC for eustacian tube dysfunction. Ear pain improved, became much worse today Past Medical History: Diagnosis Date ??? Anxiety ??? Asthma No family history on file. Current Outpatient Prescriptions Medication Sig Dispense Refill ??? ALBUTEROL IN ??? amoxicillin (AMOXIL) 875 MG tablet Take 1 tablet by mouth 2 times daily for 7 days 14 tablet 0 ??? escitalopram (LEXAPRO) 10 MG tablet Take 10 mg by mouth once daily ??? azpwazfm-cauptithw-dz (CORTISPORIN) 3.5-30110-6 otic solution Instill 4 drops into both ears 3 times daily 1 bottles 0 No current facility-administered medications for this visit. [...] ??? Not on file Social History Narrative Review of Systems Constitutional: Positive for fatigue, fevers Ears, nose, mouth, and throat: Positive for earaches bilaterally Respiratory: Negative Cardiovascular: Negative Gastrointestinal: Negative Neurological: Negative Objective: BP 98/60 Pulse 68 Temp 98.4 ??F (36.9 ??C) Resp 16 Ht 1.676 m (5' 6 ) Wt 56.7 kg (125 lb) BMI 20.18kg/m2 Exam General appearance: alert, cooperative, no distress Ears: Right tympanic membrane - normal Left tympanic membrane - brian with thick yellow drainage noted behind TM, TM bulging erythema and edema of ear canal bilaterally Nose: nares open; no septal deviation is noted, nasal mucosa not inflamed Throat: no mucous membrane abnormalities, lips, mucosa, and tongue normal; teeth and gums normal Nodes: no cervical adenopathy Lungs: breath sounds normal and symmetric; no rales or wheezes Heart: regular rhythm, normal S1 and S2, without murmurs, gallops or rubs Assessment: Encounter Diagnoses Name Primary? Acute swimmer's ear of both sides Yes ??? Acute mucoid otitis media of left ear Plan: Otitis Externa ??? Acetaminophen (Tylenol) or Ibuprofen (Advil, Motrin) for ear pain. You may alternate acetaminophen and ibuprofen every 3-4 hours to manage ear pain. Do not exceed recommended daily maximum dose of either product. ??? Position affected ear upwards for 5 minutes after application of ear drops. ??? Apply heat to the area around the ear to relieve pain using a warm washcloth, towel from the dryer, heating pad, hot water bottle. Do not leave heating pad turned on while sleeping. ??? Keep the infected ear dry. USE ear plugs or shower cap for showering. ??? Avoid swimming until infection has resolved. ??? Do not go under water in hot tubs. ??? To prevent future episodes, use over the counter ear products containing a diluted solution of acetic acid or rubbing alcohol after swimming to keep ear canal dry. Apply as directed and gently message to allow penetration. Otitis Externa Follow Up Follow up with the clinic or your primary care provider if symptoms worsen or do not improve withinthe next 48 hours Orders Placed This Encounter ??? enfhxblq-cdiifbonf-nw (CORTISPORIN) 3.5-12571-6 otic solution Sig: Instill 4 drops into both ears 3 times daily Dispense: 1 bottles Refill: 0 ??? amoxicillin (AMOXIL) 875 MG tablet Sig: Take 1 tablet by mouth 2 times daily for 7 days Dispense: 14 tablet Refill: 0 No results found for this or any previous visit (from the past 24 hour(s)). documented in this encounter Plan of Treatment Not on file documented as of this encounter Visit Diagnoses Diagnosis Acute swimmer's ear of both sides- Primary Acute mucoid otitis media of left ear documented in this encounter Care Teams Automotive Technology Instructor Relationship Specialty Start Date End Date Dawood Mcgarry MD [address] [place] [address] PCP - General Pediatrics 09/04/16 documented as of this encounter
--- OUTSIDE RECORDS SUMMARY | 2024-05-17 10:32 | XMS_ITS | Clinical Summary ---
Author Organization [facility] Address [address] [place] [address] Care Team Providers Care Rodding Anode Worker Name Role Phone Dawood Mcgarry MD Primary Care Provider [phone]- [phone] Source Comments [facility],non-owned Affiliates and Associated Physician Practices is amultiple site organization consisting of ambulatory clinics and hospital sitesin [place], [place], [place] and [place]. This disclosure is being madepursuant to the Care Everywhere program and may not contain all information available regarding this patient. Last updated 18.[facility] Allergies No known active allergies Medications * Be aware that medications may not be up to date on this document. Alwaysverify current medications with the patient. Medication Sig Dispensed Refills Start Date End Date Status ALBUTEROL IN Active escitalopram (LEXAPRO) 10 MG tablet Take 10 mg by mouth once daily Active edscipeq-xjqpdgugn-yv (CORTISPORIN) 3.5-59238-0 otic solution Instill 4 drops into both ears 3 times daily 1 bottles 12/13/2018 Active Active Problems No known active problems Social [...] 12/13/2018 6:2 9 PM CDT Growth Chart: [facility] (Girls, 2- 20 Years) Plan of Treatment Health Maintenance Due Date Last Done Comments HIV SCREENING 08/03/2019 HPV VACCINE (1 - 3-dose series) 08/03/2019 CHLAMYDIA/GONORRHEA SCREENING 2020 HEPATITIS C SCREENING 07/29/2022 DEPRESSION SCREENING 05/28/2023 DTAP/TDAP/TD VACCINES (1 - Tdap) 08/03/2023 HEPATITIS B VACCINE (1 of 3 - 19+ 3-dose series) 08/03/2023 COVID-19 VACCINE (1 - 2023-2 5 season) 2024 INFLUENZA VACCINE (#1) 2024 ZOSTER VACCINE (1 of 2) 2054 HIB VACCINE Aged Out No longer eligi ble based on patient's age to complete this topic MENINGOCOCCAL VACCINE Aged Out No zia meño eligible based on patient's age to complete this topic PNEUMOCOCCAL VACCINE Aged Out No long er eligible based on patient's age to complete this topic Care Teams Rodding Anode Worker Relationship Specialty Start Date End Date Dawood Mcgarry MD [address] [place] [phone] PCP - General Pediatrics 09/04/16
--- OUTSIDE RECORDS SUMMARY | 2024-05-17 10:32 | XMS_ITS | Encounter Summary ---
Author Organization [facility] Address [address] [place] [address] Care Team Providers Care Steamer Tender Name Role Phone Dawood Mcgarry MD Primary Care Provider [phone]- [phone] Reason for Visit * Reason Onset Date Comments Follow-up 12/15/2018 Encounter Details Date Type Department Care Team (Late st Contact Info) Description 12/15/2018 Telephone [facility] [address] [place] [address] Jennifer Mendez, MECHANICAL MAINTENANCE SUPERVISOR-[facility] [address] [place] [address] Follow-up Social History Tobacco Use Types Packs/Day [...] on filedocumented in this encounter Care Teams Steamer Tender Relationship Specialty Start Date End Date Dawood Mcgarry MD [address] [place] [phone] PCP - General Pediatrics 09/04/16 documented as of this encounter
--- OUTSIDE RECORDS SUMMARY | 2024-05-17 10:32 | XMS_ITS | Encounter Summary ---
Author Organization [facility] Address [address] [place] [address] Care Team Providers Care Electric Mule Driver Name Role Phone Dawood Mcgarry MD Primary Care Provider [phone]- [phone] Reason for Visit * Reason Onset Date Comments Follow-up 06/06/2018 Encounter Details Date Type Department Care Team (Late st Contact Info) Description 06/06/2018 Telephone [facility] [address] [address] Jennifer Wallis Follow-up Social History [...] on filedocumented in this encounter Care Teams Electric Mule Driver Relationship Specialty Start Date End Date Dawood Mcgarry MD [address] [place] [phone] PCP - General Pediatrics 09/04/16 documented as of this encounter
--- OUTSIDE RECORDS SUMMARY | 2024-05-17 10:32 | XMS_ITS | Encounter Summary ---
Author Organization [facility] Address [address] [place] [address] Care Team Providers Care Plant Production Worker Name Role Phone Dawood Mcgarry MD Primary Care Provider [phone]- [phone] Encounter Details Date Type Department Care Team (Late st Contact Info) Description 09/07/2016 Orders Only [facility] [address] [place] [address] Kathrine Rachel APRN-CNP [address] [place] [address] Strep pharyngitis Social History Tobacco Use Types Packs/Day Years Used Date Smoking Tobacco: Never Assessed Sex and Gender Information Value Date Recorded Sex Assigned at Not on file Gender Identity Not on file Sexual Orientation Not on file documented as of this encounter Patient Instructions * Patient Instructions* Kathrine Rachel APRN-CNP - 09/07/2016 5:59 PM CDT documented in this encounter Plan of Treatment Not on file documented as of this encounter Visit Diagnoses Diagnosis Strep pharyngitis- Primary Streptococcal sore throat documented in this encounter Care Teams Plant Production Worker Relationship Specialty Start Date End Date Dawood Mcgarry MD [address] [place] [phone] PCP - General Pediatrics 09/04/16 documented as of this encounter
--- OUTSIDE RECORDS SUMMARY | 2024-05-17 10:32 | XMS_ITS | Encounter Summary ---
Author Organization [facility] Address [address] [place] [address] Care Team Providers Care Vat Overhauler Name Role Phone Dawood Mcgarry MD Primary Care Provider [phone] Reason for Visit * Reason Comments Fever GENERALIZED BODY ACHES Nausea Encounter Details Date Type Department Care Team (Latest Contact Info) Description 07/16/2017 6:00 PM BUS AND SYS INTEGRATION SENIOR MANAGER Office Visit [facility] [place] [address] [place] [address] Provider, Hailee Exp Nameoki Nasopharyngitis acute (Primary Dx) Social History Tobacco Use Types Packs/Day Years Used Date Smoking Tobacco: Never Smokeless Tobacco: Never Comments:No passive smoke ex posure Sex and Gender Information Value Date Recorded Sex Assigned at Not on file Gender Identity Not on file Sexual Orientation Not on file documented as of this encounter Last Filed Vital Signs Vital Sign Reading Time Taken Comments Blood Pressure 118/86 07/16/2017 5:54 PM BUS AND SYS INTEGRATION SENIOR MANAGER Pulse 92 07/16/2017 5:54 PM BUS AND SYS INTEGRATION SENIOR MANAGER Temperature 36.8 ??C (98.2 ??F) 07/16/2017 5:54 PM CS T Respiratory Rate 16 07/16/2017 5:54 PM BUS AND SYS INTEGRATION SENIOR MANAGER Oxygen Saturation 97% 07/16/2017 5:54 PM BUS AND SYS INTEGRATION SENIOR MANAGER Inhaled Oxygen Concentration - - Weight 54.4 kg (120 lb) 07/16/2017 5:54 PM BUS AND SYS INTEGRATION SENIOR MANAGER Height 168.9 cm (5' 6.5 ) 07/16/2017 5:54 PM BUS AND SYS INTEGRATION SENIOR MANAGER Body Mass Index 19.08 07/16/2017 5:54 PM BUS AND SYS INTEGRATION SENIOR MANAGER Body Mass Index Percentile 55.48% 07/16/2017 5:5 4 PM BUS AND SYS INTEGRATION SENIOR MANAGER Growth Chart: CDC (Girls, 2- 20 Years) documented in this encounter Patient Instructions * Patient Instructions* Annabelle Abraham, SUPERVISOR SHUTTLE PREPARATION-RADIOLOGIC TECHNOLOGY PROGRAM DIRECTOR - 07/16/2017 6:16 PM BUS AND SYS INTEGRATION SENIOR MANAGER Images from the original note were not included. Cold Symptoms in Children RETAIL WORKER: A common cold is caused by a viral infection. The infection usually affects your child's upper respiratory system. Your child may have any of the following symptoms: ?? Chills and a fever that usually lasts 1 to 3 days ?? Sneezing ?? A dry or sore throat ?? A stuffy nose or chest congestion ?? Headache, body aches, or sore muscles ?? A dry cough or a cough that brings up mucus ?? Feeling tired or weak ?? Loss of appetite Seek care immediately if: ?? Your child's [...] or urinates less than usual. ?? Your child has a severe headache. ?? Your child has chest or stomach pain. Contact your child's healthcare provider if: ?? Your child's rectal, ear, or forehead temperature is higher than 100.4??F (38??C). ?? Your child's oral (mouth) or pacifier temperature is higher than 100.4??F (38??C). ?? Your child's armpit temperature is higher than 99??F (37.2??C). ?? Your child [...] concerns about your child's condition or care. Treatment: Most colds go away without treatment in 1 to 2 weeks. Do not give [id number] coughor cold medicines to children under 4 years. These medicines can cause side effects that may harm your child. Your child may need any of the following to help manage his or her symptoms: ?? Acetaminophen decreases pain and fever. It is available without a doctor's order. Ask how much to give your child and how often to give it. Follow directions. Acetaminophen can cause liver damage if not taken correctly. Acetaminophen is also found in cough and cold medicines. Read the label to make sure you do not give your child a double dose of acetaminophen. ?? NSAIDs , such as ibuprofen, help [...] with you in case of an emergency. Help relieve your child's symptoms: ?? Give your child plenty of liquids. Liquids will help thin and loosen mucus so your child can cough it up. Liquids will also keep your child hydrated. Do not give your child liquids with caffeine. Caffeine can increase your child's risk for dehydration. Liquids that help prevent dehydration include water, fruit juice, or broth. Ask your child's healthcare provider how much liquid to give your child each day. ?? Have your child rest for at least 2 days. Rest will help your child heal. ?? Use a cool mist humidifier in your child's room. Cool mist can help thin mucus and make it easier for your child to breathe. ?? Clear mucus from your child's nose. [...] may recommend you put saline dropsinto your baby or child's nose if the mucus is very thick. ?? Soothe your child's throat. If your child is 8 years or older, have him or her gargle with salt water. Make salt water by adding ?? teaspoon salt to 1 cup warm water. You can give honey to children older than 1 year. Give ?? teaspoon of honey to children 1 to 5 years. Give 1 teaspoon of honey tochildren 6 to 11 years. Give 2 teaspoons of honey to children 12 or older. ?? Apply petroleum-based jelly around the outside [...] use these products. Prevent the spread of germs: Keep your child away from other people during the first 3 to 5 days ofhis or her illness. The virus is most contagious during this time. Wash your child's hands often. Tell your child not to share items such as drinks, food, or toys. Your child should cover his nose and mouth when he coughs or sneezes. Show your child how to cough and sneeze into the crook of the elbow instead of the hands. Follow up with your child's healthcare provider as directed: Write down your questions so you remember to ask them during your visits. ?? 2017 [employer] Information is for End User's use only and may not be sold, redistributed or otherwise used for commercial purposes. All illustrations and images included in CareNotes?? are the copyrighted property of [employer]. or [employer]. The above information is an paid search marketing analyst only. It is not intended as medical advice for individual conditions or treatments. Talk to your doctor, nurse or pharmacist before following any medical regimen to see if it is safe and effective for you. AND SYS INTEGRATION SENIOR MANAGER documented in this encounter Progress Notes * Annabelle Abraham APRN-CNP - 07/16/2017 5:57 PM CST Maria Elena Marquez is a .11 y.o..female patient, here for: Chief Complaint Patient presents with ??? Fever ??? GENERALIZED BODY ACHES ??? Nausea HPI- Patient with 1 day of fevers (101.3), fatigue, body aches, nausea, and cough. Denies shortnessof breath and chest pain. Positive for sick contacts, father has Influenza. OTC- Tylenol for fever with relief. Medications reviewed. Outpatient Prescriptions Marked as Taking for the 07/16/17 encounter (Office Visit) with Provider, Hailee Exp Nameoki Medication Sig ??? ALBUTEROL IN No Known Allergies Past Medical History: Diagnosis Date ??? Asthma There is no problem list on file for this patient. No past surgical history on file. family history is not on file. Social History Social History ??? Marital status: Single Social History Main Topics ??? Smoking status: Never Smoker ??? Smokeless tobacco: Never Used Comment: No passive smoke exposure Social History Narrative History Smoking Status ??? Never Smoker Smokeless Tobacco ??? Never Used Comment: No passive smoke exposure Review of Systems Constitutional: Positive for fatigue, fevers, chills, malaise Eyes: Negative Ears, nose, mouth, and throat: Positive for congestion Respiratory: Positive for acute cough, asthma, Negative for shortness of breath, wheezing Cardiovascular: Negative for chest pain Objective: Vitals: 07/16/17 1754 BP: (!) 118/86 Pulse: 92 Resp: 16 Temp: 98.2 ??F SpO2: 97% Weight: 54.4 kg (120 lb) General appearance: alert, cooperative, no distress, oriented to person, place, and time Head: normocephalic, without trauma Eyes: sclera and conjunctiva clear Ears: canals clear, tympanic membranes normal, hearing intact to voice Nose: nares open Throat: no mucous membrane abnormalities Neck: supple Nodes: no cervical adenopathy Lungs: breath sounds normal and symmetric; no rales or wheezes Heart: regular rhythm, normal S1 and S2, without murmurs, gallops or rubs Assessment: Encounter Diagnoses Name Primary? Nasopharyngitis acute Yes Office Visit on 07/16/17 INFLUENZA A+B - POINT OF CARE (AMB) Result Value Ref Range Influenza A Ag Negative Negative Influenza B Ag Negative Negative Influenza Control yes NEGATIVE - POSITIVE Influenza Lot# [id number] Influenza Expir Date 03/19/19 Plan: Orders Placed This Encounter ??? INFLUENZA A+B - POINT OF CARE (AMB) Drink plenty of fluids to help thin secretions. May take Tylenol or Ibuprofen for fever or pain as directed per package instructions May take OTC antihistamines such as Zyrtec, Marcy, or Claritin as directed per package instructions for allergy relief May take Sudafed (must get from behind pharmacy counter), for relief of sinus congestion, as directed per package instructions Recommend use of OTC intranasal saline irrigation daily per package instructions Recommend daily use of Flonase or Nasonex, as directed per package instuctions Reviewed education materials and instructions with patient and answered all questions. GO TO EMERGENCY ROOM OR CALL 911 WITH ANY OF THE FOLLOWING SYMPTOMS: HIGH, PERSISTENT FEVER >102; SWELLING, INFLAMMATION, OR REDNESS AROUND EYES, ABNORMAL EYE MOVEMENTS, VISION CHANGES (DOUBLE VISION OR IMPAIRED VISION); SEVERE HEADACHE; ALTERED MENTAL STATUS. THESE ARE SIGNS OF A RARE, BUT SERIOUS COMPLICATION AND REQUIRES IMMEDIATE EMERGENCY ATTENTION. Maria Elena Marquez's mother verbalized understanding and agrees with plan. Follow up with Dawood Mcgarry MD if symptoms worsen or do not completely resolve. Annabelle Abraham APRN, TAPING FOREMAN- 07/16/2017 6:16 PM AND SYS INTEGRATION SENIOR MANAGER documented in this encounter Plan of Treatment Not on file documented as of this encounter Procedures Procedure Name Priority Date/Time Associated Diagnosis Comments INFLUENZA A+B - POINT OF CARE (AMB) Routine 07/16/2017 Nasopharyngitis acute documented in this encounter Results * INFLUENZA A+B - POINT OF CARE (AMB) (07/16/2017) Influenza A Antigen Rapid Negative Negative Influenza B Antigen Rapid Negative Negative Influenza Internal Control yes NEGATIVE - POSITIVE Influenza Lot Number [id number] Influenza Expiration Date 03/19/19 Other NASOPHARYNGEAL SWAB / Unknown 07/16/2017 Annabelle [facility] - POINT OF CA RE ORDERABLES documented in this encounter Visit Diagnoses Diagnosis Nasopharyngitis acute- Primary Acute nasopharyngitis (common cold) documented in this encounter Care Teams Vat Overhauler Relationship Specialty Start Date End Date Dawood Mcgarry MD [address] [place] [address] PCP - General Pediatrics 09/04/16 documented as of this encounter
--- OUTSIDE RECORDS SUMMARY | 2024-05-17 10:32 | XMS_ITS | Encounter Summary ---
Author Organization [facility] Address [address] [place] [address] Care Team Providers Care Whitewater Rafting Guide Name Role Phone Dawood Mcgarry MD Primary Care Provider [phone] Reason for Visit * Reason Comments Sore Throat Encounter Details Date Type Department Care Team (Late st Contact Info) Description 09/04/2016 10:00 AM CDT Office Visit [facility] [address] [place] [address] Provider, Hailee Exp Nameoki Viral pharyngitis (Primary Dx) Social History Tobacco Use Types Packs/Day Years Used Date Smoking Tobacco: Never Assessed Sex and Gender Information Value Date Recorded Sex Assigned at Not on file Gender Identity Not on file Sexual Orientation Not on file documented as of this encounter Last Filed Vital Signs Vital Sign Reading Time Taken Comments Blood Pressure 102/56 09/04/2016 10:21 AM CDT Pulse 88 09/04/2016 10:21 AM CDT Temperature 36.6 ??C (97.8 ??F) 09/04/2016 10:21 AM C DT Respiratory Rate 18 09/04/2016 10:21 AM CDT Oxygen Saturation 98% 09/04/2016 10:21 AM CDT Inhaled Oxygen Concentration - - Weight 51.9 kg (114 lb 8 oz) 09/04/2016 10:21 AM CDT Height 165.7 cm (5' 5.25 ) 09/04/2016 10:21 AM C DT Body Mass Index 18.91 09/04/2016 10:21 AM CDT Body Mass Index Percentile 60.69% 09/04/2016 10: 21 AM CDT Growth Chart: [facility] (Girls, 2- 20 Years) documented in this encounter Patient Instructions * Patient Instructions* Esthela DREA Posada - 09/04/2016 10:38 AM CDT Warm salt water gargles for comfort. Cool soft foods, nothing acidic. Cepacol lozenges. Increase fluids. Pharyngitis in Children MERCHANDISING LEAD: Pharyngitis , or sore throat, is inflammation [...] ask them during your child's visits. ?? 2016 [employer] Information is for End User's use only and may not be sold, redistributed or otherwise used for commercial purposes. All illustrations and images included in CareNotes?? are the copyrighted property of [employer]. or [employer]. The above information is an ed educational aide only. It is not intended as medical advice for individual conditions or treatments. Talk to your doctor, nurse or pharmacist before following any medical regimen to see if it is safe and effective for you. documented in this encounter Progress Notes * Swetha Proctor APRN-CNP - 09/04/2016 10:30 AM CDT [facility] Chief Complaint Patient presents with ??? Sore Throat SUBJECTIVE: HPI Comments: 11 y/o F brought to clinic for c/o sore throat x 2 days. Mom states wants her to be tested for strep throat. General The history is provided by the patient. This is a new problem. The current episode started more than 2 days ago. The problem occurs daily. The problem has been gradually worsening. The symptoms are aggravated by swallowing. She has tried acetaminophen for the symptoms. No past medical history on file. No current outpatient prescriptions on file prior to visit. No current facility-administered medications on file prior to visit. No past surgical history on file. History Social History ??? Marital status: Single Spouse name: N/A ??? Number of children: N/A ??? Years of education: N/A Occupational History ??? Not on file. Social History Main Topics ??? Smoking status: Not on file ??? Smokeless tobacco: Not on file ??? Alcohol use: Not on file ??? Drug use: Not on file ??? Sexual activity: Not on file Other Topics Concern ??? Not on file Social History Narrative No family history on file. No current outpatient prescriptions on file. No current facility-administered medications for this visit. Allergies not on file REVIEW OF SYSTEMS: Review of Systems Constitutional: Negative. HENT: Positive for sore throat. Respiratory: Negative. Cardiovascular: Negative. All other systems reviewed and are negative. OBJECTIVE: General appearance: alert, well appearing, and in no distress. BP 102/56 (BP CUFF SIZE: Adult) Pulse 88 Temp 97.8 ??F Resp 18 Ht 1.657 m (5' 5.25 ) Wt 51.9 kg (114 lb 8 oz) SpO2 98% BMI 18.91 kg/m2 Physical Exam Constitutional: She is well-developed, well-nourished, and in no distress. HENT: Head: Normocephalic. Right Ear: External ear normal. Left Ear: External ear normal. Nose: Nose normal. Mouth/Throat: Uvula is midline and mucous membranes are normal. Posterior oropharyngeal erythema present. Neck: Normal range of motion. Neck supple. Cardiovascular: Normal rate, regular rhythm and normal heart sounds. Pulmonary/Chest: Effort normal and breath sounds normal. Vitals reviewed. ASSESSMENT: Office Visit on 09/04/16 STREP A SCREEN Result Value Ref Range Strep A Rapid Negative Negative Strep A INTERNAL CONTROL Present Lot Number [id number] Expiration Date [id number] Encounter Diagnosis Name Primary? Viral pharyngitis Yes PLAN: Orders Placed This Encounter ??? CULTURE THROAT ??? STREP A SCREEN Warm salt water gargles for comfort. Cool soft foods, nothing acidic. Cepacol lozenges. Increase fluids. documented in this encounter Plan of Treatment Not on file documented as of this encounter Procedures Procedure Name Priority Date/Time Associated Diagnosis Comments CULTURE THROAT Routine 09/04/2016 10:39 AM CDT Viral pharyngitis STREP A SCREEN - POINT OF CARE (AMB) STL Routine 09/04/2016 Viral pharyngitis documented in this encounter Results * (ABNORMAL) CULTURE THROAT (09/04/2016 10:39 AM CDT) Culture (A) [facility] Comment: ??CULTURE, THROAT ?MICRO NUMBER: ?[id number] ??TEST STATUS: ? FINAL ??SPECIMEN SOURCE: ?? THROAT ??SPECIMEN QUALITY: ??ADEQUATE ??RESULT: ?Heavy growth of Group A Streptococcus isolated ? Beta-hemolytic Streptococci are predictably ? susceptible to penicillin and other beta-lactams. ? Susceptibility testing not routinely performed. ??COMMENT: ? Normal oropharyngeal prakash also present. Test Performed at: [id number] ??[id number] JORJE LOPEZ MD Microbiology ENTIRE THROAT (SURFACE REGION OF NECK) / Unknown 09/04/2016 10:39 AM CDT 09/05/2016 2:38 AM CDT Swetha Proctor DEPUTY CLERK OF SUPERIOR COURT-SLAB MILLER OPERATOR LAB - MICROBIOLO GY ORDERABLES Performing Organization Address City/State/[facility] Co de Phone Number [address] [address] * STREP A SCREEN (09/04/2016) Strep A Rapid POCT Negative Negative Strep A Internal Control Present Lot # [id number] Expiration Date [id number] Throat ENTIRE THROAT (SURFACE REGION OF NECK) / Unknown 09/04/2016 Swetha Proctor APRN-SLAB MILLER OPERATOR LAB - POINT OF C ARE ORDERABLES documented in this encounter Visit Diagnoses Diagnosis Viral pharyngitis- Primary Acute pharyngitis documented in this encounter Care Teams Whitewater Rafting Guide Relationship Specialty Start Date End Date Dawood Mcgarry MD [address] [place] [id number] PCP - General Pediatrics 09/04/16 documented as of this encounter
--- OUTSIDE RECORDS SUMMARY | 2024-05-17 10:32 | XMS_ITS | Encounter Summary ---
Author Organization [facility] Address [address] [place] [address] Care Team Providers Care Zipper Sewing Machine Operator Name Role Phone Dawood Mcgarry MD Primary Care Provider [phone] Reason for Visit * Reason Comments Ear Problem Encounter Details Date Type Department Care Team (Late st Contact Info) Description 11/21/2017 11:20 AM CDT Office Visit [facility] [address] [place] [address] Provider, Tiannag Exp Nameoki Acute swimmer's ear of both sides (Primary Dx) Social History Tobacco Use Types Packs/Day Years Used Date Smoking Tobacco: Never Smokeless Tobacco: Never Comments:No passive smoke ex posure Sex and Gender Information Value Date Recorded Sex Assigned at Not on file Gender Identity Not on file Sexual Orientation Not on file documented as of this encounter Last Filed Vital Signs Vital Sign Reading Time Taken Comments Blood Pressure 104/66 11/21/2017 11:35 AM CDT Pulse 103 11/21/2017 11:35 AM CDT Temperature 36.7 ??C (98.1 ??F) 11/21/2017 11:35 AM C DT Respiratory Rate 16 11/21/2017 11:35 AM CDT Oxygen Saturation 98% 11/21/2017 11:35 AM CDT Inhaled Oxygen Concentration - - Weight 54.4 kg (120 lb) 11/21/2017 11:35 AM CDT Height 168.9 cm (5' 6.5 ) 11/21/2017 11:35 AM CD T Body Mass Index 19.08 11/21/2017 11:35 AM CDT Body Mass Index Percentile 52.48% 11/21/2017 11: 35 AM CDT Growth Chart: CDC (Girls, 2- 20 Years) documented in this encounter Patient Instructions * Patient Instructions* Leigh Annabelle Gustavo, MOLD MAKER HELPER-PRODUCTION PLANNING MANAGER - 11/21/2017 11:49 AM CDT Images from the original note were not included. Otitis Externa INVESTIGATION MANAGER: Otitis externa , or swimmer's ear, is [...] ask them during your visits. ?? 2017 [email or web address] Information is for End User's use only and may not be sold, redistributed or otherwise used for commercial purposes. All illustrations and images included in CareNotes?? are the copyrighted property of [employer]. or [employer]. The above information is an special education educational assistant only. It is not intended as medical advice for individual conditions or treatments. Talk to your doctor, nurse or pharmacist before following any medical regimen to see if it is safe and effective for you. documented in this encounter Progress Notes * Annabelle Abraham APRN-CNP - 11/21/2017 11:41 AM CDT Maria Elena Marquez is a 12 y.o. female who presents to the clinic today for Chief Complaint Patient presents with ??? Ear Problem . Primary Care Physician is Dawood Mcgarry MD. Symptoms include ear pain bilateral. Onset of symptoms was 1 week ago, gradually worsening since that time. She Has also reported the following symptoms: bilateral ear pressure/pain, and is drinking plenty of fluids.. OTC- Swimmer's ear drops with no relief of pain. Patient is on swim team and swims daily Past Medical History: Diagnosis Date ??? Asthma No family history on file. Current Outpatient Prescriptions Medication Sig Dispense Refill ??? igkochwn-gzcvddlag-ze (CORTISPORIN) 3.5-85208-9 otic suspension Instill 3 drops into both ears 3 times daily for 7 days Reasons: Outer Ear Canal Infection 10 mL 0 ??? ALBUTEROL IN No current facility-administered medications for this visit. No Known Allergies Social History Social History ??? Marital status: Single Social History Main Topics ??? Smoking status: Never Smoker ??? Smokeless tobacco: Never Used Comment: No passive smoke exposure Social History Narrative Review of Systems Constitutional: Negative for fevers. Eyes: Negative Ears, nose, mouth, and throat: Positive for earaches bilaterally Respiratory: Negative for shortness of breath Cardiovascular: Negative for chest pain Objective: BP 104/66 Pulse 103 Temp 98.1 ??F (36.7 ??C) Resp 16 Ht 1.689 m (5' 6.5 ) Wt 54.4 kg (120 lb) SpO2 98% BMI 19.08 kg/m2 Exam General appearance: alert, cooperative, no distress, oriented to person, place, and time Head: normocephalic, without trauma Eyes: sclera and conjunctiva clear Ears: Right and Left canal- erythematous and white drainage in ear. Right side worse than Left, pain with palpation and maneuver of ear on right side. Right TM - air/fluid interface visualized Left TM- air/fluid interface visualized Nose: nares open Throat: no mucous membrane abnormalities Neck: supple Nodes: no cervical adenopathy Lungs: breath sounds normal and symmetric; no rales or wheezes Heart: regular rhythm, normal S1 and S2, without murmurs, gallops or rubs Assessment: Encounter Diagnosis Name Primary? Acute swimmer's ear of both sides Yes Plan: Take all medication as prescribed. Keep ear canal free from water Do not place Q-Tips or other objects into ear canal Do not use OTC ear drops without consulting with your healthcare provider. May take Tylenol or Ibuprofen for fever or pain as directed per package instructions. Reviewed education materials and instructions with patient and answered all questions. Maria Elena Marquez verbalized understanding and agrees with plan. Follow up with Dawood Mcgarry MD if symptoms worsen or do not completely resolve. If prescribed topical ear drops: Proper installation of ear drops entails tilting the head toward the opposite shoulder, pulling theupper portion of the up and forward, and filling the ear canal with drops. Lie on your side for [address] a cotton ball in the ear canal for 20 minutes to maximize medicine exposure. GO TO THE ER WITH ANY NEW ONSET OF FEVER, PAIN BEHIND THE EAR AND/OR REDNESS OVER THE BONE BEHIND THE EAR, OR SWELLING OF THE EXTERNAL EAR AND/OR EXTERNAL EAR APPEARING TO BE DISPLACED DOWNWARD. THESE ARE ALL SIGNS OF A SERIOUS COMPLICATION AND REQUIRES IMMEDIATE ATTENTION. Orders Placed This Encounter ??? qzqcnuzw-nyuzkebvv-oq (CORTISPORIN) 3.5-27059-9 otic suspension Sig: Instill 3 drops into both ears 3 times daily for 7 days Reasons: Outer Ear Canal Infection Dispense: 10 mL Refill: 0 Annabelle Abraham APRN, PRINT DEVELOPER AUTOMATIC-BC 11/21/2017 11:55 AM * Jennifer Wallis - 11/21/2017 11:34 AM CDT Mom sent letter giving permission to treate. documented in this encounter Plan of Treatment Not on file documented as of this encounter Visit Diagnoses Diagnosis Acute swimmer's ear of both sides- Primary documented in this encounter Care Teams Zipper Sewing Machine Operator Relationship Specialty Start Date End Date Dawood Mcgarry MD [address] [place] [phone] PCP - General Pediatrics 09/04/16 documented as of this encounter
--- OUTSIDE RECORDS SUMMARY | 2024-05-17 10:32 | XMS_ITS | Encounter Summary ---
Author Organization [facility] Address [address] [facility] [address] [facility] [place] [address] Care Team Providers Care Foreign Policy Officer Name Role Phone Dawood Mcgarry MD Primary Care Provider Reason for Visit * Reason Onset Date Comments Results 09/07/2016 Encounter Details Date Type Department Care Team (Late st Contact Info) Description 09/07/2016 Telephone [facility] [address] [place] [address] Kathrine Rachel APRN-CNP [address] [place] [address] Results Social History Tobacco Use Types Packs/Day Years Used Date Smoking Tobacco: Never Assessed Sex and Gender Information Value Date Recorded Sex Assigned at Not on file Gender Identity Not on file Sexual Orientation Not on file documented as of this encounter Miscellaneous Notes * Telephone Encounter - Kathrine Rachel APRN-CNP - 09/07/2016 6:06 PM CDT Spoke with Barbara regarding patient Maria Elena's positive throat culture results. [facility] pharmacy. Questions answered. Mom verbalized understanding and will pick up and delivery driver medicationthis evening. Instructed mother to discard patient's toothbrush after 6th dose of antibiotic and tofollow up with Dr. Mcgarry or clinic with any other questions or concerns regarding Maria Elena. documented in this encounter Plan of Treatment Not on file documented as of this encounter Visit Diagnoses Not on filedocumented in this encounter Care Teams Foreign Policy Officer Relationship Specialty Start Date End Date Dawood Mcgarry MD [address] [place] [phone] PCP - General Pediatrics 09/04/16 documented as of this encounter
--- OUTSIDE RECORDS SUMMARY | 2024-05-17 10:32 | XMS_ITS | Referral Summary ---
Author Organization [email or web address] Address [address] [facility] [place] [address] Care Team Providers Care Garnett Machine Operator Helper Name Role Phone Dawood Mcgarry MD Primary Care Provider [phone]- [phone] Source Comments [email or web address],non-owned Affiliates and Associated Physician Practices is amultiple site organization consisting of ambulatory clinics and hospital sitesin [place], [place], [place] and [place]. This disclosure is being madepursuant to the Care Everywhere program and may not contain all information available regarding this patient. Last updated 18.[email or web address] Allergies No known active allergies Medications * Be aware that medications may not be up to date on this document. Alwaysverify current medications with the patient. Medication Sig Dispensed Refills Start Date End Date Status ALBUTEROL IN Active escitalopram (LEXAPRO) 10 MG tablet Take 10 mg by mouth once daily Active ceekllum-nhslyupfe-rq (CORTISPORIN) 3.5-17381-2 otic solution Instill 4 drops into both [...] 12/13/2018 6:2 9 PM CDT Growth Chart: [facility] (Girls, 2- 20 Years) Plan of Treatment Not on file Care Teams Garnett Machine Operator Helper Relationship Specialty Start Date End Date Dawood Mcgarry MD [facility], [id number] [place] [phone] PCP - General Pediatrics 09/04/16
--- OUTSIDE RECORDS SUMMARY | 2024-05-17 10:32 | XMS_ITS | Encounter Summary ---
Author Organization [facility] Address [address] [place] [address] Care Team Providers Care Ribbon Blockmaker Name Role Phone Dawood Mcgarry MD Primary Care Provider [phone]- [phone] Reason for Visit * Reason Comments Ear Problem Encounter Details Date Type Department Care Team (Late st Contact Info) Description 11/25/2018 5:00 PM CDT Office Visit [facility] [address] [place] [address] Provider, Tiannag Exp [address]oki Dysfunction of both eustachian tubes (Primary Dx) Social History Tobacco Use Types Packs/Day Years Used Date Smoking Tobacco: Never Smokeless Tobacco: Never Comments:No passive smoke ex posure Sex and Gender Information Value Date Recorded Sex Assigned at Not on file Gender Identity Not on file Sexual Orientation Not on file documented as of this encounter Last Filed Vital Signs Vital Sign Reading Time Taken Comments Blood Pressure 104/68 11/25/2018 4:49 PM CDT Pulse 74 11/25/2018 4:49 PM CDT Temperature 36.7 ??C (98 ??F) 11/25/2018 4:49 PM CDT Respiratory Rate 17 11/25/2018 4:49 PM CDT Oxygen Saturation 98% 11/25/2018 4:49 PM CDT Inhaled Oxygen Concentration - - Weight 56.7 kg (125 lb) 11/25/2018 4:49 PM CDT Height 167.6 cm (5' 6 ) 11/25/2018 4:49 PM CDT Body Mass Index 20.18 11/25/2018 4:49 PM CDT Body Mass Index Percentile 58.50% 11/25/2018 4:4 9 PM CDT Growth Chart: CDC (Girls, 2- 20 Years) documented in this encounter Patient Instructions * Patient Instructions* Annabelle Abraham Gustavo, COMPONENT OVERHAUL OPERATOR-LABOR UNION BUSINESS REPRESENTATIVE - 11/25/2018 4:55 PM CDT Eustachian Tube Dysfunction WHAT YOU NEED TO KNOW: What is eustachian tube dysfunction? Eustachian tube dysfunction (ETD) is a condition that preventsyour eustachian tubes from opening properly. It can also cause them to become blocked. Eustachian tubes connect your middle ear to the back of your nose and throat. These tubes open and allow air to flow in and out when you sneeze, swallow, or yawn. What causes or increases my risk of ETD? ETD may be caused by swelling or buildup of mucus in your eustachian tubes. Allergies, a cold, or sinus infection can increase your risk for ETD. Smoking alsoincreases your risk for ETD. What are the signs and symptoms of ETD? ?? Fullness or pressure in your ears ?? Muffled hearing ?? Pain in one or both ears ?? Ringing in your ears ?? Popping or clicking feeling in your ears ?? Trouble keeping your balance How is ETD diagnosed? Your healthcare provider will ask about your symptoms. He will examine your ears, your nose, and the back of your throat. He may also do a hearing test. How is ETD treated? Your ETD may get better on its own without any treatment. You may need any of the following: ?? Exercises such as swallowing, yawning, or chewing gum may help to open your eustachian tubes. Your healthcare provider may also recommend that you take a deep breath and then blow with your mouth shut and your nostrils pinched closed. ?? Air pressure devices push air into your nose and eustachian tubes to help relieve air pressure in your ear. ?? Treatment for allergies such as decongestants, antihistamines, and nasal steroids may improve ETD. They may help decrease swelling of the eustachian tubes. ?? Ear tubes may help to keep your middle ear open. During this procedure, your healthcare providerwill cut a small hole in your eardrum. ?? A myringotomy is procedure to make a small cut in your eardrum and suction out fluid from your middle ear. ?? Tuboplasty is a procedure to widen your eustachian tubes. When should I contact my healthcare provider? ?? Your symptoms do not improve or get worse. ?? You have a fever. ?? You have any hearing loss. ?? You have questions or concerns about your condition or care. CARE AGREEMENT: You have the right to help plan your care. Learn about your health condition and how it may be treated. Discuss treatment options with your healthcare providers to decide what care you want to receive. You always have the right to refuse treatment. The above information is an educational psychology teacher only. It is not intended as medical advice for individual conditions or treatments. Talk to your doctor, nurse or pharmacist before following any medical regimen to see if it is safe and effective for you. ?? Copyright [employer] 2019 Information is for End User's use only and may not be sold, redistributed or otherwise used for commercial purposes. All illustrations and images included in CareNotes?? are the copyrighted property of [employer]. or [employer] documented in this encounter Progress Notes * Annabelle Abraham APRN-CNP - 11/25/2018 4:48 PM CDT Maria Elena Marquez is a 13 year old female who presents to the clinic today for Chief Complaint Patient presents with ??? Ear Problem . Primary Care Physician is Dawood Mcgarry MD. Symptoms include ear pain bilateral. Onset of symptoms was 3 days ago, gradually worsening since that time. She Has also reported the following symptoms: bilateral ear pressure/pain, and is drinking plenty of fluids. OTC- none Past Medical History: Diagnosis Date ??? Anxiety [...] No passive smoke exposure Review of Systems Pertinent items are noted in HPI Constitutional: Negative for fevers, chills. Eyes: Negative Ears, nose, mouth, and throat: Positive for earaches bilaterally Respiratory: Negative Cardiovascular: Negative Neurological: Negative Objective: BP 104/68 (BP SITE: RIGHT ARM, BP POSITION: SITTING) Pulse 74 Temp 98 ??F (36.7 ??C) (Oral) Resp 17Ht 1.676 m (5' 6 ) Wt 56.7 kg (125 lb) SpO2 98% BMI 20.18 kg/m2 Exam General appearance: alert, cooperative, no distress, oriented to person, place, and time Head: normocephalic, without trauma Eyes: sclera and conjunctiva clear Ears: Right TM - air/fluid interface visualized, no erythema or bulging Left TM- air/fluid interface visualized, no erythema or bulging Nose: nares open; no septal deviation is noted Throat: no mucous membrane abnormalities Neck: supple Nodes: no cervical adenopathy Lungs: breath sounds normal and symmetric; no rales or wheezes Heart: regular rhythm Assessment: Encounter Diagnosis Name Primary? Dysfunction of both eustachian tubes Yes Plan: It could take up to 12 weeks for the fluid behind your ear drum(s) to clear. If symptoms remain beyond 12 weeks, seek an evaluation from ENT. Applying a warm pack to the affected area may help with the discomfort. May take OTC antihistamines such as Zyrtec, Marcy, or Claritin as directed per package instructions for allergy relief Keep ear canal free from water Do [...] symptoms worsen or do not completely resolve. GO TO THE ER WITH ANY NEW ONSET OF FEVER, PAIN BEHIND THE EAR AND/OR REDNESS OVER THE BONE BEHIND THE EAR, OR SWELLING OF THE EXTERNAL EAR AND/OR EXTERNAL EAR APPEARING TO BE DISPLACED DOWNWARD. THESE ARE ALL SIGNS OF A SERIOUS COMPLICATION AND REQUIRES IMMEDIATE ATTENTION. Annabelle Abraham APRN, ELECTRICAL TECHNICIAN INSTRUCTOR-BC 11/25/2018 5:01 PM documented in this encounter Plan of Treatment Not on file documented as of this encounter Visit Diagnoses Diagnosis Dysfunction of both eustachian tubes- Primary Dysfunction of Eustachian tube documented in this encounter Care Teams Ribbon Blockmaker Relationship Specialty Start Date End Date Dawood Mcgarry MD [address] [place] [address] PCP - General Pediatrics 09/04/16 documented as of this encounter
== END 2024-05-12 11:35 | disposition home or self-care (01) ==
PROVIDERS: PCP Pediatrics; Visit Provider Otolaryngology
PROC: (CPT 30520; principal; 2024-05-12 07:30)
PROC: (CPT 30520; 2024-05-12 07:30)
DX: J34.2 Deviated nasal septum (principal); J34.8200 Internal nasal valve collapse, unspecified; J34.3 Hypertrophy of nasal turbinates; M95.0 Acquired deformity of nose
CPT/HCPCS: 30520; 30140; 30465; A9270; J0690; J1596; J2003; J2004; J2250; J2405; J2704; J2710; J3010; J7120